=== PATIENT | male | born 1970 | race Caucasian/White ===

== ENCOUNTER 2016-10-24 00:42 | Emergency (ER) | payer MEDICAID ==
[2016-10-24] MEDS ORDERED: Acetaminophen/oxyCODONE 325-5 MG Tab PO ONE (02:43)
[2016-10-24] MEDS ORDERED: Ketorolac 30 MG/ML SDV IM ONE (02:43)
--- NOTE | 2016-10-24 02:45 | EDM.PDOC ---
ED HPI GENERAL MEDICAL PROBLEM - General Chief Complaint: General Stated Complaint: PAIN ALL OVER BODY Time Seen by Provider: 10/24/16 01:50 Source of Information: Reports: Patient History Limitations: Reports: No Limitations - History of Present Illness INITIAL COMMENTS - FREE TEXT/NARRATIVE: The patient is a 46-year-old male with a history of chronic back pain who comes in with an exacerbation of his usual pain. He states that he's had an increase in his pain level over the past 2 weeks. Has been seeing his doctor for this. He had an MRI completed at an outside institution 3 days ago but doesn't have this result yet. Comes in tonight because his pain is poorly controlled. He has been taking cyclobenzaprine and hydrocodone for pain. States the hydrocodone use to work but hasn't worked lately. However he has only taken 2 tablets in the last 24 hours. He hasn't taken any NSAIDs. States he has been taking the cyclobenzaprine at home and has adequate supply of all of his medications. No fever. No weakness. No numbness. No systemic symptoms or additional complaints. Generalized Pain Score (Numeric/FACES): 5 - Related Data Allergies Allergy/AdvReac Type Severity Reaction Status Date / Time No Known Allergies Allergy Verified 10/24/16 00:56 Home Meds: Home Meds DULoxetine [Cymbalta] 60 mg PO BID 12/27/15 [History] Nabumetone [Nabumetone] 500 mg PO BID 12/27/15 [History] Acetaminophen/HYDROcodone [[place] 325-5 MG] 1 tab PO Q6H PRN 10/24/16 [History] Budesonide/Formoterol [Symbicort 160-4.5 MCG] 1 inh INH ASDIRECTED 10/24/16 [ History] Cyclobenzaprine [Flexeril] 10 mg PO BEDTIME 10/24/16 [History] Losartan/Hydrochlorothiazide [Losartan-HCTZ 50-12.5 MG] 1 tab PO DAILY 10/24/16 [History] Past Medical History HEENT History: Reports: Impaired Vision Other HEENT History: wears eyeglasses Cardiovascular History: Reports: Hypertension Other Cardiovascular History: takes no BP med. Respiratory History: Reports: Asthma Other Respiratory History: takes no meds for asthma. Musculoskeletal History: Reports: Back Pain, Chronic, Neck Pain, Chronic, Other (See Below) Other Musculoskeletal History: chronic neck and back pain, radiating into bi- lat legs into toes, blown disk to back Neurological History: Reports: Migraines Social & Family History - Family History Family Medical History: Noncontributory Cardiac: Reports: [place] - Tobacco Use Smoking Status *Q: Never Smoker Second Hand Smoke Exposure: No - Caffeine Use Caffeine Use: Reports: Soda Other Caffeine Use: diet coke 2/day - Recreational Drug Use Recreational Drug Use: No - Living Situation & Occupation Living situation: Reports: Single Occupation: Employed ED ROS GENERAL - Review of Systems Review Of Systems: See Below Constitutional: Reports: No Symptoms Respiratory: Reports: No Symptoms Cardiovascular: Reports: No Symptoms GI/Abdominal: Reports: No Symptoms : Reports: No Symptoms Neurological: Reports: No Symptoms ED EXAM, GENERAL - Physical Exam Exam: See Below Exam Limited By: No Limitations General Appearance: Alert, WD/WN, No Apparent Distress Eye Exam: Bilateral Eye: Normal Inspection Ears: Normal External Exam Nose: Normal Inspection Throat/Mouth: Normal Inspection, Normal Voice, No Airway Compromise Head: Atraumatic, Normocephalic Neck: Normal Inspection, Supple, Non-Tender, Full Range of Motion Respiratory/Chest: No Respiratory Distress, Lungs Clear, Normal Breath Sounds Cardiovascular: Normal Peripheral Pulses, Regular Rate, Rhythm, No Murmur GI/Abdominal: Soft, Non-Tender, No Distention. No: Rebound Back Exam: Normal Inspection, Vertebral Tenderness (throughout T and L spine. No step-offs/deformities. Skin normal. No fluctuance. ). No: CVA Tenderness ( L), CVA Tenderness (R) Extremities: Normal Inspection Neurological: Alert, Oriented, No Motor/Sensory Deficits Psychiatric: Normal Affect, Normal Mood Skin Exam: Warm, Dry, Intact, Normal Color, No Rash Course - Vital Signs Last Recorded V/S: Last Vital Signs Temp 36.3 C 10/24/16 00:53 Pulse 77 10/24/16 03:14 Resp 18 10/24/16 03:14 BP 117/79 10/24/16 03:14 Pulse Ox 95 10/24/16 03:14 - Orders/Labs/Meds Meds: Medications Discontinued Medications Generic Name Dose Route Start Last Admin Trade Name Freq PRN Reason Stop Dose Admin Ketorolac Tromethamine 30 mg 10/24/16 02:43 10/24/16 02:57 Toradol IM 10/24/16 02:44 30 mg ONETIME ONE Administration Oxycodone/Acetaminophen 2 tab 10/24/16 02:43 10/24/16 02:56 Percocet 325-5 Mg PO 10/24/16 02:44 2 tab ONETIME ONE Administration Departure - Departure Time of Disposition: 02:43 Disposition: Home, Self-Care 01 Clinical Impression: Back pain Qualifiers: Back pain location: low back pain Chronicity: acute Back pain laterality: midline Sciatica presence: without sciatica Qualified Code(s): M54.5 - Low back pain - Discharge Information Instructions: Back Pain, Adult Referrals: Balta Bianchi MD [Primary Care Provider] - Forms: ED Department Discharge Additional Instructions: 1. OK to take your hydrocodone every 4-6 hours. You may have better pain control tomorrow if you take it more frequently than twice per day while your pain is severe. 2. Also take ibuprofen as prescribed. Ibuprofen works in a different way, and while it may not take away your pain, it should help some. 3. Also continue your cyclobenzaprine as needed for muscle spasm. 4. Follow up with Dr. Bianchi as soon as possible to discuss further pain control.
[2016-10-24 03:21] VITALS: BP 117/79
== END 2016-10-24 03:15 | disposition home or self-care (01) ==
LOC: JD.ED 00:42
DX: M54.5 Low back pain (principal); I10 Essential (primary) hypertension; J45.909 Unspecified asthma, uncomplicated
CPT/HCPCS: 96372; 99283; A9270; J1885

== ENCOUNTER 2017-09-01 04:18 | Emergency (ER) | payer MEDICAID ==
[2017-09-01 04:27] VITALS: BP 143/97
[2017-09-01] MEDS ORDERED: Ketorolac 30 MG/ML SDV IM ONE (04:44)
[2017-09-01] MEDS ORDERED: Acetaminophen/HYDROcodone 325-5 MG Tab PO ONE (04:49)
--- NOTE | 2017-09-01 04:51 | EDM.PDOC ---
ED HPI GENERAL MEDICAL PROBLEM - General Chief Complaint: General Stated Complaint: PAIN ALL OVER BODY Time Seen by Provider: 09/01/17 04:39 Source of Information: Reports: Patient, RN Notes Reviewed - History of Present Illness INITIAL COMMENTS - FREE TEXT/NARRATIVE: 47-year-old male comes in initially with complaint of aching all over but when questioned more specifically states that his low back giving him the most difficulty early this morning. No recent fall or injury. He states he has "a bulging disc". He is on chronic anti-inflammatory medication in addition to multiple other indications. See list for details. He does take at least occasional hydrocodone for breakthrough discomfort. He states he ran out about 2 days ago. Generalized Pain Score (Numeric/FACES): 8 - Related Data Allergies Allergy/AdvReac Type Severity Reaction Status Date / Time No Known Allergies Allergy Verified 09/01/17 04:24 Home Meds: Home Meds DULoxetine [Cymbalta] 60 mg PO DAILY 12/27/15 [History] Nabumetone 500 mg PO BID 12/27/15 [History] Acetaminophen/HYDROcodone [[place] 325-5 MG] 1 tab PO Q6H PRN 10/24/16 [History] Budesonide/Formoterol [Symbicort 160-4.5 MCG] 1 inh INH ASDIRECTED 10/24/16 [ History] Cyclobenzaprine [Flexeril] 10 mg PO BEDTIME 10/24/16 [History] Losartan/Hydrochlorothiazide [Losartan-HCTZ 50-12.5 MG] 1 tab PO DAILY 10/24/16 [History] Amitriptyline [Elavil] 50 mg PO BEDTIME 09/01/17 [History] Past Medical History HEENT History: Reports: Impaired Vision Other HEENT History: wears eyeglasses Cardiovascular History: Reports: Hypertension Other Cardiovascular History: takes no BP med. Respiratory History: Reports: Asthma Other Respiratory History: takes no meds for asthma. Musculoskeletal History: Reports: Back Pain, Chronic, Neck Pain, Chronic, Other (See Below) Other Musculoskeletal History: chronic neck and back pain, radiating into bi- lat legs into toes, blown disk to back Neurological History: Reports: Migraines Social & Family History - Family History Family Medical History: Noncontributory Cardiac: Reports: [place], [place] - Tobacco Use Smoking Status *Q: Never Smoker - Caffeine Use Caffeine Use: Reports: Soda Other Caffeine Use: diet coke 2/day - Recreational Drug Use Recreational Drug Use: No - Living Situation & Occupation Living situation: Reports: Single Occupation: Employed ED ROS GENERAL - Review of Systems Review Of Systems: See Below Constitutional: Denies: Fever, Chills HEENT: Reports: No Symptoms Respiratory: Denies: Shortness of Breath Cardiovascular: Denies: Chest Pain GI/Abdominal: Denies: Abdominal Pain, Nausea, Vomiting Musculoskeletal: Reports: Back Pain Skin: Denies: Rash Neurological: Denies: Numbness, Tingling, Difficulty Walking ED EXAM, GENERAL - Physical Exam Exam: See Below General Appearance: Alert, No Apparent Distress Head: Atraumatic Neck: Supple Respiratory/Chest: Lungs Clear Cardiovascular: Regular Rate, Rhythm GI/Abdominal: Non-Tender Back Exam: Paraspinal Tenderness (Mild). No: Vertebral Tenderness Extremities: Normal Inspection, Normal Range of Motion Neurological: Alert, Oriented, No Motor/Sensory Deficits Skin Exam: Warm, Dry, Normal Color Course - Vital Signs Text/Narrative:: . Patient is driving. We have given him one hydrocodone to take when he gets home. Discharge instructions as documented Last Recorded V/S: Last Vital Signs Temp 97.9 F 09/01/17 04:25 Pulse 87 09/01/17 04:25 Resp 16 09/01/17 04:25 BP 143/97 H 09/01/17 04:25 Pulse Ox 96 09/01/17 04:25 - Orders/Labs/Meds Meds: Medications Discontinued Medications Generic Name Dose Route Start Last Admin Trade Name Harshad PRN Reason Stop Dose Admin Hydrocodone Bitart/Acetaminophen 1 tab 09/01/17 04:49 [place] 325-5 Mg PO 09/01/17 04:50 ONETIME ONE Ketorolac Tromethamine 30 mg 09/01/17 04:44 Toradol IM 09/01/17 04:45 ONETIME ONE Departure - Departure Time of Disposition: 04:50 Disposition: Home, Self-Care 01 Condition: Fair Clinical Impression: Low back pain Qualifiers: Chronicity: chronic Back pain laterality: midline Sciatica presence: without sciatica Qualified Code(s): M54.5 - Low back pain - Discharge Information Instructions: Back Pain, Adult Referrals: Balta Bianchi MD [Primary Care Provider] - Forms: ED Department Discharge Additional Instructions: You have been given one hydrocodone tablet which she may take when you get home , do not drive when taking hydrocodone. Continue other current medications as prescribed. Follow-up with Dr. Bianchi as needed
== END 2017-09-01 04:58 | disposition home or self-care (01) ==
LOC: JD.ED 04:18
DX: M54.5 Low back pain (principal); I10 Essential (primary) hypertension; Z79.899 Other long term (current) drug therapy
CPT/HCPCS: 99283; A9270

== ENCOUNTER 2018-05-12 23:26 | Emergency (ER) | payer MEDICAID ==
[2018-05-12 23:34] VITALS: BP 137/88
[2018-05-13] MEDS ORDERED: Ketorolac 60 MG/2 ML SDV IM ONE (00:21)
--- NOTE | 2018-05-13 00:27 | EDM.PDOC ---
ED HPI GENERAL MEDICAL PROBLEM - General Chief Complaint: General Stated Complaint: ALL OVER BODY PAIN Time Seen by Provider: 05/12/18 23:47 Source of Information: Reports: Patient, Family History Limitations: Reports: No Limitations - History of Present Illness INITIAL COMMENTS - FREE TEXT/NARRATIVE: This is a 47-year-old male. He apparently has a blown disc in his back lumbar spine. He takes hydrocodone and a Flexeril for his pain. Apparently today he's been doing fine and nothing unusual then he had onset of low back pain around 8 or 9 PM that seemed to spread and now his entire body is hurting. He also states he has a history of fibromyalgia. He did take 2 hydrocodone but he did not take a muscle relaxer at 9 PM this evening. It hasn't seemed to help slowly comes to the ER for evaluation. He denies a runny nose he denies any cold symptoms no cough no fever no chills he's had no diarrhea and no nausea and vomiting. He's had no abdominal pain and no pain down his legs other than generalized hurting. He denies any other acute symptoms. He does not appear to be in acute distress. Generalized Pain Score (Numeric/FACES): 8 - Related Data Allergies Allergy/AdvReac Type Severity Reaction Status Date / Time No Known Allergies Allergy Verified 02/07/18 01:39 Home Meds: Home Meds DULoxetine [Cymbalta] 60 mg PO DAILY 12/27/15 [History] Nabumetone 500 mg PO BID 12/27/15 [History] Acetaminophen/HYDROcodone [[place] 325-5 MG] 1 tab PO Q6H PRN 10/24/16 [History] Budesonide/Formoterol [Symbicort 160-4.5 MCG] 2 puff INH BID 10/24/16 [History] Cyclobenzaprine [Flexeril] 10 mg PO DAILY 10/24/16 [History] Losartan/Hydrochlorothiazide [Losartan-HCTZ 50-12.5 MG] 1 tab PO DAILY 10/24/16 [History] Amitriptyline [Elavil] 50 mg PO DAILY 09/01/17 [History] Cholecalciferol (Vitamin D3) [Vitamin D3] 0 unit PO DAILY 05/12/18 [History] Cyanocobalamin (Vitamin B12) [Vitamin B12] 500 mcg PO DAILY 05/12/18 [History] Famotidine [Pepcid] 20 mg PO DAILY 05/12/18 [History] Past Medical History HEENT History: Reports: Impaired Vision Other HEENT History: wears eyeglasses Cardiovascular History: Reports: Hypertension Other Cardiovascular History: takes no BP med. Respiratory History: Reports: Asthma Other Respiratory History: takes no meds for asthma. Musculoskeletal History: Reports: Back Pain, Chronic, Neck Pain, Chronic, Other (See Below) Other Musculoskeletal History: chronic neck and back pain, radiating into bi- lat legs into toes, blown disk to back Neurological History: Reports: Migraines Psychiatric History: Reports: Anxiety, Depression Social & Family History - Family History Family Medical History: Noncontributory Cardiac: Reports: [place], [place] - Tobacco Use Smoking Status *Q: Never Smoker - Caffeine Use Caffeine Use: Reports: Soda Other Caffeine Use: diet coke 2/day - Recreational Drug Use Recreational Drug Use: No - Living Situation & Occupation Living situation: Reports: Single Occupation: Employed ED ROS GENERAL - Review of Systems Review Of Systems: See Below Constitutional: Denies: Fever, Chills HEENT: Reports: No Symptoms Respiratory: Denies: Shortness of Breath, Cough Cardiovascular: Denies: Chest Pain Endocrine: Reports: No Symptoms GI/Abdominal: Denies: Abdominal Pain, Diarrhea, Nausea, Vomiting : Reports: No Symptoms Musculoskeletal: Reports: Back Pain, Other (Fibromyalgia) Skin: Reports: No Symptoms Neurological: Denies: Trouble Speaking, Difficulty Walking Psychiatric: Reports: No Symptoms Hematologic/Lymphatic: Reports: No Symptoms ED EXAM, GENERAL - Physical Exam Exam: See Below Exam Limited By: No Limitations General Appearance: Alert, WD/WN, No Apparent Distress Eye Exam: Bilateral Eye: Normal Inspection Ears: Normal External Exam Nose: Normal Inspection. No: Nasal Drainage, Clear Rhinorrhea Throat/Mouth: Normal Inspection, Normal Lips, Normal Oropharynx, Normal Voice, No Airway Compromise Head: Normocephalic Neck: Supple Respiratory/Chest: No Respiratory Distress, Lungs Clear, Normal Breath Sounds Cardiovascular: Regular Rate, Rhythm, No Murmur GI/Abdominal: Soft, Non-Tender Back Exam: Other (The patient is able to sit up in bed with no difficulty, when I palpate his back he has generalized soreness everywhere, he does have specific soreness however in the upper lumbar area in the paraspinal muscles on palpation that he states that is where his blown disc is, there is no SI joint tenderness.) Extremities: Normal Inspection, Normal Range of Motion Neurological: Alert, Oriented Psychiatric: Normal Affect, Normal Mood Skin Exam: Warm, Dry Course - Vital Signs Last Recorded V/S: Last Vital Signs Temp 97.3 F 05/12/18 23:33 Pulse 98 05/12/18 23:33 Resp 20 05/12/18 23:33 BP 137/88 05/12/18 23:33 Pulse Ox 96 05/12/18 23:33 - Orders/Labs/Meds Orders: Active Orders 24 hr Category Date Time Status Ketorolac [Toradol] Med 05/13/18 00:21 Once 60 mg IM ONETIME ONE Departure - Departure Time of Disposition: 00:25 Disposition: Home, Self-Care 01 Condition: Fair Clinical Impression: Myalgia, Fibromyalgia Chronic low back pain Qualifiers: Back pain laterality: midline Sciatica presence: without sciatica Qualified Code(s): M54.5 - Low back pain; G89.29 - Other chronic pain - Discharge Information *PRESCRIPTION DRUG MONITORING PROGRAM REVIEWED*: Not Applicable *COPY OF PRESCRIPTION DRUG MONITORING REPORT IN PATIENT VERONICA: Not Applicable Referrals: Balta Bianchi MD [Primary Care Provider] - Additional Instructions: Continue with the hydrocodone as needed, as soon as you get home take a muscle relaxer to help you relax and ease up some of the tension in the muscles as well it will help you sleep, drink lots of water because it helps with muscle soreness, follow-up with your family doctor this week for recheck, return to the ER for emergencies - My Orders Last 24 Hours: My Active Orders 05/13/18 00:21 Ketorolac [Toradol] 60 mg IM ONETIME ONE - Assessment/Plan Last 24 Hours: My Active Orders 05/13/18 00:21 Ketorolac [Toradol] 60 mg IM ONETIME ONE
== END 2018-05-13 00:29 | disposition home or self-care (01) ==
LOC: JD.ED 23:26
DX: M54.5 Low back pain (principal); G89.29 Other chronic pain; M79.7 Fibromyalgia; I10 Essential (primary) hypertension; Z79.899 Other long term (current) drug therapy
CPT/HCPCS: 96372; 99283; J1885

== ENCOUNTER 2018-07-10 03:26 | Emergency (ER) | payer MEDICAID ==
[2018-07-10 03:36] VITALS: BP 137/95
[2018-07-10] MEDS ORDERED: Ketorolac 60 MG/2 ML SDV IM ONE (04:11)
--- NOTE | 2018-07-10 04:14 | EDM.PDOC ---
ED HPI GENERAL MEDICAL PROBLEM - General Chief Complaint: Back Pain or Injury Stated Complaint: BACK AND LEG PAIN BETWEEN A 9 AND 10 Time Seen by Provider: 07/10/18 03:53 Source of Information: Reports: Patient History Limitations: Reports: No Limitations - History of Present Illness Onset: Today Back Pain Score (Numeric/FACES): 9 - Related Data Allergies Allergy/AdvReac Type Severity Reaction Status Date / Time No Known Allergies Allergy Verified 02/07/18 01:39 Home Meds: Home Meds DULoxetine [Cymbalta] 60 mg PO DAILY 12/27/15 [History] Nabumetone 500 mg PO BID 12/27/15 [History] Acetaminophen/HYDROcodone [[place] 325-5 MG] 1 tab PO Q6H PRN 10/24/16 [History] Budesonide/Formoterol [Symbicort 160-4.5 MCG] 2 puff INH BID 10/24/16 [History] Cyclobenzaprine [Flexeril] 10 mg PO DAILY 10/24/16 [History] Losartan/Hydrochlorothiazide [Losartan-HCTZ 50-12.5 MG] 1 tab PO DAILY 10/24/16 [History] Amitriptyline [Elavil] 50 mg PO DAILY 09/01/17 [History] Cholecalciferol (Vitamin D3) [Vitamin D3] 0 unit PO DAILY 05/12/18 [History] Cyanocobalamin (Vitamin B12) [Vitamin B12] 500 mcg PO DAILY 05/12/18 [History] Famotidine [Pepcid] 20 mg PO DAILY 05/12/18 [History] Past Medical History HEENT History: Reports: Impaired Vision Other HEENT History: wears eyeglasses Cardiovascular History: Reports: Hypertension Other Cardiovascular History: takes no BP med. Respiratory History: Reports: Asthma, Sleep Apnea Other Respiratory History: takes no meds for asthma., wears CPAP at [facility] Musculoskeletal History: Reports: Back Pain, Chronic, Neck Pain, Chronic, Other (See Below) Other Musculoskeletal History: chronic neck and back pain, radiating into bi- lat legs into toes, blown disk to back Neurological History: Reports: Migraines Psychiatric History: Reports: Anxiety, Depression Social & Family History - Family History Family Medical History: Noncontributory Cardiac: Reports: [place], [place] - Tobacco Use Smoking Status *Q: Never Smoker Second Hand Smoke Exposure: No - Caffeine Use Caffeine Use: Reports: None Other Caffeine Use: diet coke 2/day - Recreational Drug Use Recreational Drug Use: No - Living Situation & Occupation Living situation: Reports: Single Occupation: Employed ED ROS GENERAL - Review of Systems Review Of Systems: ROS reveals no pertinent complaints other than HPI. ED EXAM,LOWER BACK PAIN/INJURY - Physical Exam Exam: See Below Text/Narrative:: dictated Course - Vital Signs Last Recorded V/S: Last Vital Signs Temp 36.4 C 07/10/18 03:32 Pulse 86 07/10/18 03:32 Resp 20 07/10/18 03:32 BP 137/95 H 07/10/18 03:32 Pulse Ox 93 L 07/10/18 03:32 - Orders/Labs/Meds Meds: Medications Discontinued Medications Generic Name Dose Route Start Last Admin Trade Name Harshad PRN Reason Stop Dose Admin Ketorolac Tromethamine 60 mg 07/10/18 04:11 07/10/18 04:17 Toradol IM 07/10/18 04:12 60 mg ONETIME ONE Administration Departure - Departure Time of Disposition: 04:13 Disposition: Home, Self-Care 01 Condition: Fair Clinical Impression: Low back pain due to displacement of intervertebral disc - Discharge Information Instructions: Herniated Disk, [id number] Referrals: Balta Bianchi MD [Primary Care Provider] - Forms: ED Department Discharge Additional Instructions: Please return if you are worse. Follow up with PCP as needed.
--- NOTE | 2018-07-10 05:20 | ER ---
REASON FOR EMERGENCY ROOM VISIT: Acute exacerbation of chronic low back pain due to herniated disk. HISTORY OF PRESENT ILLNESS: This unfortunate 48-year-old gentleman has been plagued for 15 years with chronic low back pain which he states is a result of a herniated disk for which he has not had any surgery. His pain management has varied over the years, but recently has consisted largely of hydrocodone on a chronic basis along with Flexeril. He has nonetheless had periods where pain has been severe and he has had to come to the emergency room at which time, he has responded in the past to IM Toradol injections. Today, he states that he has had his usual amount of low- grade pain that he rates from 0-3 on a scale of 1-10. Tonight, his pain intensified to approximately 8/10. He took his hydrocodone last 4-1/2 hours ago and this was to no avail. He does take Flexeril, but he does not think it helps at all. As far as his usual hydrocodone, he has been on this medication for quite some time. He states that there are times when he goes a couple of weeks without needing it and then when he has flare-ups of pain like this, he requires it sometimes 2 or 3 times a day or even more. The patient's back pain was not related to any particular trauma. He states he was evaluated by a back surgeon back in 2003, who told him that "he would not touch me." The reason for this is was unclear to me. He is followed by Dr. Bianchi at [place], who is his primary care provider and has been prescribing his hydrocodone when needed. He does have chronic leg weakness, more so on the left than on the right which has been attributed to his pain. He has had physical therapy in the past. However, he was told it was not doing him any good. Heat or cold has not helped his pain. Usually, the pain is most bothersome, it localized in the lower back area, but it does radiate down his right leg at times. [place] is 1 such example where he has some achiness in his right leg. He has not had any problems with numbness or continence issues. PAST MEDICAL HISTORY: Significant for: 1. Hypertension. 2. Chronic back pains as outlined above. 3. History of asthma. 4. Migraines. 5. History of anxiety and depression. 6. He has been told he has fibromyalgia in the past, but apparently that impression has been changed, he states his provider no longer feels he has this. CURRENT MEDICATIONS: Include: 1. Cymbalta 60 mg per day. 2. Nabumetone 500 mg p.o. b.i.d. 3. Hydrocodone 5/325 one q.4 hours p.r.n. pain. 4. Flexeril. 5. Losartan/hydrochlorothiazide 50/12.5 mg p.o. daily. 6. Elavil 50 mg p.o. daily. 7. Vitamins. 8. Pepcid 20 mg p.o. daily. FAMILY HISTORY: Noncontributory except his father did have coronary artery disease. SOCIAL HISTORY: He is single and lives alone. He is close to his sister and some other friends. He denies any recreational drug use or alcohol use. He is a nonsmoker. REVIEW OF SYSTEMS: All pertinent positives and negatives as listed in the HPI. PHYSICAL EXAMINATION: GENERAL: Reveals a pleasant man who does not appear to be in any acute distress. VITAL SIGNS: He is afebrile. Heart rate is 86, blood pressure 137/95, and O2 saturations 93% on room air. HEENT: Unremarkable. NECK: Supple and nontender to passive range of motion. CHEST: Clear to auscultation. CARDIAC: Regular rate without murmur. ABDOMEN: Obese, but soft and nontender. No palpable masses. No pulsatile masses were noted. EXTREMITIES: Normal pulses. No edema. SPINE: He does have some tenderness to palpation and percussion over approximately L3-L4. There is no paraspinal spasm. The tenderness is in the midline. It is fairly significant. Straight leg raising is negative. Deep tendon reflexes are symmetrical in both lower extremities. Muscle strength, bulk and tone is symmetrical bilaterally in both lower extremities. FINAL DIAGNOSIS: Acute exacerbation of chronic low back pain due to possible herniated lumbar disk. DISPOSITION: I reviewed with him what has been done for his back pain and I am left with somewhat perplexed as to why as to the actual severity of his lumbar disk problem and why this has been approached surgically. I suspect there is more to the story than I am aware of. We reviewed things like stretching exercises, activity, physical therapy, application of cold and heat, etc. He has been through all of these and is well-versed in this. He was given Toradol 60 mg IM x1 and urged to follow up with Dr. Bianchi, and he agrees with this plan. All questions were answered. GALE /[id number]
== END 2018-07-10 04:21 | disposition home or self-care (01) ==
LOC: JD.ED 03:26
DX: M51.26 Other intervertebral disc displacement, lumbar region (principal); F41.9 Anxiety disorder, unspecified; F32.9 Major depressive disorder, single episode, unspecified; I10 Essential (primary) hypertension; Z79.899 Other long term (current) drug therapy
CPT/HCPCS: 96372; 99283; J1885

== ENCOUNTER 2018-07-21 05:02 | Emergency (ER) | payer MEDICAID ==
[2018-07-21] MEDS ORDERED: Acetaminophen 325 MG Tab PO ONE (05:52)
[2018-07-21] MEDS ORDERED: Ondansetron 4 MG Tab.DIS PO ONE (05:52)
--- NOTE | 2018-07-21 05:55 | EDM.PDOC ---
ED HPI GENERAL MEDICAL PROBLEM - General Chief Complaint: Gastrointestinal Problem Stated Complaint: VOMITING Time Seen by Provider: 07/21/18 05:37 Source of Information: Reports: Patient, RN Notes Reviewed History Limitations: Reports: No Limitations - History of Present Illness INITIAL COMMENTS - FREE TEXT/NARRATIVE: The patient states that he had nausea with approximately 10 episodes of emesis yesterday. No diarrhea. He reports that both his sister and mother have similarly been vomiting. He states that he felt warm, but he has not had a fever , yesterday and today. Today, the patient states that he feels weak, he has had nausea but no emesis, headache, his bones are sore, and his abdomen is uncomfortable. He has not taken any [id number] or home remedies to treat his symptoms. The patient's PCP is Dr. Bianchi. His pain records management manager is in [place]. Abdomen Pain Score (Numeric/FACES): 3 - Related Data Allergies Allergy/AdvReac Type Severity Reaction Status Date / Time No Known Allergies Allergy Verified 07/21/18 05:10 Home Meds: Home Meds DULoxetine [Cymbalta] 60 mg PO DAILY 12/27/15 [History] Nabumetone 500 mg PO BID 12/27/15 [History] Acetaminophen/HYDROcodone [[place] 325-5 MG] 1 tab PO Q6H PRN 10/24/16 [History] Budesonide/Formoterol [Symbicort 160-4.5 MCG] 2 puff INH BID 10/24/16 [History] Cyclobenzaprine [Flexeril] 10 mg PO DAILY 10/24/16 [History] Losartan/Hydrochlorothiazide [Losartan-HCTZ 50-12.5 MG] 1 tab PO DAILY 10/24/16 [History] Amitriptyline [Elavil] 50 mg PO DAILY 09/01/17 [History] Cholecalciferol (Vitamin D3) [Vitamin D3] 0 unit PO DAILY 05/12/18 [History] Cyanocobalamin (Vitamin B12) [Vitamin B12] 500 mcg PO DAILY 05/12/18 [History] Famotidine [Pepcid] 20 mg PO DAILY 05/12/18 [History] Ondansetron [Zofran ODT] 1 tab PO Q8H PRN #10 tab.dis 04/19/19 [Rx] Past Medical History HEENT History: Reports: Impaired Vision Other HEENT History: wears eyeglasses Cardiovascular History: Reports: Hypertension Respiratory History: Reports: Asthma (suspected, not tested), Sleep Apnea ( wears nightly CPAP) Gastrointestinal History: Reports: GERD Musculoskeletal History: Reports: Back Pain, Chronic, Neck Pain, Chronic Psychiatric History: Reports: Anxiety, Depression - Past Surgical History HEENT Surgical History: Reports: Oral Surgery (dental extractions) Social & Family History - Family History Family Medical History: Noncontributory Cardiac: Reports: [place] - Tobacco Use Smoking Status *Q: Never Smoker - Caffeine Use Caffeine Use: Reports: None Other Caffeine Use: diet coke 2/day - Alcohol Use Alcohol Use History: No - Recreational Drug Use Recreational Drug Use: No - Living Situation & Occupation Living situation: Reports: Single, with Family (Sister) Occupation: Unemployed ED ROS GENERAL - Review of Systems Review Of Systems: ROS reveals no pertinent complaints other than HPI. ED EXAM, GI/ABD - Physical Exam Exam: See Below Exam Limited By: No Limitations General Appearance: Alert, WD/WN, No Apparent Distress Eyes: Bilateral: Normal Appearance, EOMI Ears: Normal External Exam, Hearing Grossly Normal Nose: Normal Inspection Throat/Mouth: Normal Inspection, Normal Lips, Normal Voice, No Airway Compromise Head: Atraumatic, Normocephalic Neck: Normal Inspection, Full Range of Motion Respiratory/Chest: No Respiratory Distress, Lungs Clear, Normal Breath Sounds, No Accessory Muscle Use Cardiovascular: Normal Peripheral Pulses, Regular Rate, Rhythm, No Gallop, No JVD, No Murmur, No Rub GI/Abdominal Exam: Normal Bowel Sounds, Soft, Non-Tender, No Organomegaly, No Distention, No Abnormal Bruit, No Mass, Pelvis Stable, Other (Obese) (Male) Exam: Deferred Rectal (Males) Exam: Deferred Back Exam: Normal Inspection, Full Range of Motion, NT Extremities: Normal Inspection, Normal Range of Motion, Normal Capillary Refill Neurological: Alert, Oriented, Normal Cognition, No Motor/Sensory Deficits Psychiatric: Normal Affect Skin Exam: Warm, Dry, Intact, Normal Color, No Rash Course - Vital Signs Last Recorded V/S: Last Vital Signs Temp 35.9 C 07/21/18 07:10 Pulse 106 H 07/21/18 07:10 Resp 16 07/21/18 07:10 BP 119/96 H 07/21/18 07:10 Pulse Ox 95 07/21/18 07:10 - Orders/Labs/Meds Meds: Medications Discontinued Medications Generic Name Dose Route Start Last Admin Trade Name Harshad PRN Reason Stop Dose Admin Acetaminophen 650 mg 07/21/18 05:52 07/21/18 06:00 Tylenol PO 07/21/18 05:53 650 mg NOW ONE Administration Ondansetron HCl 4 mg 07/21/18 05:52 07/21/18 06:00 Zofran Odt PO 07/21/18 05:53 4 mg ONETIME ONE Administration - Re-Assessments/Exams Free Text/Narrative Re-Assessment/Exam: 07/21/18 05:54 While the patient is complaining of some abdominal discomfort, on examination, his abdomen is soft, nontender, with normoactive bowel sounds. I don't see the need for blood work. I will treat the patient's nausea was Zofran ODT, his headache with Tylenol, and have him drink some fluids. 07/21/18 06:48 The patient states that he is feeling much better. I will discharge him home with a prescription for Zofran ODT. Departure - Departure Time of Disposition: 06:48 Disposition: Home, Self-Care 01 Condition: Good Clinical Impression: Nausea and vomiting - Discharge Information *PRESCRIPTION DRUG MONITORING PROGRAM REVIEWED*: Not Applicable *COPY OF PRESCRIPTION DRUG MONITORING REPORT IN PATIENT VERONICA: Not Applicable Prescriptions: Ondansetron [Zofran ODT] 1 tab PO Q8H PRN #10 tab.dis PRN Reason: Nausea/Vomiting Instructions: Nausea and Vomiting, Adult Referrals: Balta Bianchi MD [Primary Care Provider] - Forms: ED Department Discharge Additional Instructions: You were seen in the emergency room for recent nausea and vomiting, headache, abdominal discomfort, and generalized aches and pains. You were given and antinausea medicine, Tylenol, and fluids in the ER, with improvement in your symptoms. A prescription for the anti-nausea medicine Zofran has been sent to the [facility], located in the [employer] [facility]. Dissolve one tablet of Zofran on your tongue up to every 8 hours, as needed for nausea/vomiting. Stay adequately hydrated. Follow-up with your PCP, Dr. Bianchi, as needed. If any other problems, please do not hesitate to return to the ER.
[2018-07-21 07:20] VITALS: BP 119/96
== END 2018-07-21 07:10 | disposition home or self-care (01) ==
LOC: JD.ED 05:02
DX: R11.2 Nausea with vomiting, unspecified (principal); I10 Essential (primary) hypertension; F41.9 Anxiety disorder, unspecified; F32.9 Major depressive disorder, single episode, unspecified; K21.9 Gastro-esophageal reflux disease without esophagitis; Z79.899 Other long term (current) drug therapy
CPT/HCPCS: 99283; A9270

== ENCOUNTER 2019-03-05 00:07 | Emergency (ER) | payer MEDICAID ==
[2019-03-05 00:16] VITALS: BP 131/72; PULSE 93
[2019-03-05] MEDS ORDERED: Ketorolac 60 MG/2 ML SDV IM ONE (00:32)
[2019-03-05] MEDS ORDERED: Orphenadrine 100 MG Tab.ER PO STA (00:32)
--- NOTE | 2019-03-05 00:38 | EDM.PDOC ---
ED HPI GENERAL MEDICAL PROBLEM - General Chief Complaint: Back Pain or Injury Stated Complaint: neck pain Time Seen by Provider: 03/05/19 00:18 Source of Information: Reports: Patient History Limitations: Reports: No Limitations - History of Present Illness INITIAL COMMENTS - FREE TEXT/NARRATIVE: Mr. Lund is a pleasant 48-year-old man with a past medical history significant for chronic neck and back pain. He states that his pain is due to a "blown disc" but he does not recall where the disc is, and he cannot explain how a single disc herniation could cause pain all over his body. He was previously treated by pain management in [place], but for reasons unclear, that relationship ended in January or February of this year. Since then, the patient has been prescribed [place] 5/325 per his PCP. The patient now presents to the ED stating that he developed pain all over his body around 16:30 to 17:00 yesterday afternoon, 03/04/2019. He states that the pain waxed and waned, but became constant around midnight. He states that he took a [place] tonight, but it did not improve his pain. He therefore came to the ED, and is requesting that I give him something to treat his pain. The patient denies suffering any injury or known precipitant of his current pain. He denies recent illness, such as fever, chills, cough, dyspnea, chest pain, palpitations, nausea, vomiting, constipation, diarrhea, abdominal pain, urinary symptoms, recent weight gain or weight loss, recent bloody bowel movements or black bowel movements, recent joint aches, headaches, or rashes. The patient's PCP is Dr. Balta Bianchi. His Classifier Tender is in [place], but patient does not recall his name. back Pain Score (Numeric/FACES): 7 - Related Data Allergies Allergy/AdvReac Type Severity Reaction Status Date / Time No Known Allergies Allergy Verified 03/05/19 00:16 Home Meds: Home Meds DULoxetine [Cymbalta] 60 mg PO DAILY 12/27/15 [History] Nabumetone 500 mg PO BID 12/27/15 [History] Acetaminophen/HYDROcodone [[place] 325-5 MG] 1 tab PO Q6H PRN 10/24/16 [History] Budesonide/Formoterol [Symbicort 160-4.5 MCG] 2 puff INH BID 10/24/16 [History] Cyclobenzaprine [Flexeril] 10 mg PO DAILY 10/24/16 [History] Losartan/Hydrochlorothiazide [Losartan-HCTZ 50-12.5 MG] 1 tab PO DAILY 10/24/16 [History] Amitriptyline [Elavil] 50 mg PO DAILY 09/01/17 [History] Cyanocobalamin (Vitamin B12) [Vitamin B12] 500 mcg PO DAILY 05/12/18 [History] Albuterol Sulfate [Albuterol Sulfate Hfa] 2 puff INH Q6HR PRN 03/05/19 [History] Orphenadrine [Norflex] 1 tab PO Q12H PRN #14 tab.er 03/05/19 [Rx] Past Medical History HEENT History: Reports: Impaired Vision Other HEENT History: wears eyeglasses Cardiovascular History: Reports: Hypertension Respiratory History: Reports: Asthma (suspected, not tested), Sleep Apnea ( nightly CPAP) Gastrointestinal History: Reports: GERD Musculoskeletal History: Reports: Back Pain, Chronic, Neck Pain, Chronic Psychiatric History: Reports: Anxiety, Depression Endocrine/Metabolic History: Reports: Obesity/BMI 30+ - Past Surgical History HEENT Surgical History: Reports: Oral Surgery (dental extractions) Social & Family History - Family History Family Medical History: Noncontributory Cardiac: Reports: [place], [place] - Tobacco Use Smoking Status *Q: Never Smoker Second Hand Smoke Exposure: No - Caffeine Use Caffeine Use: Reports: None Other Caffeine Use: diet coke 2/day - Alcohol Use Alcohol Use History: No - Recreational Drug Use Recreational Drug Use: No - Living Situation & Occupation Living situation: Reports: Single, with Family (Sister) Occupation: Unemployed ED ROS GENERAL - Review of Systems Review Of Systems: Comprehensive ROS is negative, except as noted in HPI. ED EXAM, GENERAL - Physical Exam Exam: See Below Exam Limited By: No Limitations General Appearance: Alert, WD/WN, No Apparent Distress Eye Exam: Bilateral Eye: EOMI, Normal Inspection Ears: Normal External Exam, Hearing Grossly Normal Nose: Normal Inspection Throat/Mouth: Normal Inspection, Normal Lips, Normal Voice, No Airway Compromise Head: Atraumatic, Normocephalic Neck: Normal Inspection, Full Range of Motion Respiratory/Chest: No Respiratory Distress, Lungs Clear, Normal Breath Sounds, No Accessory Muscle Use Cardiovascular: Normal Peripheral Pulses, Regular Rate, Rhythm, No Gallop, No JVD, No Murmur, No Rub Peripheral Pulses: 4+: Radial (L), Radial (R) GI/Abdominal: Normal Bowel Sounds, Soft, Non-Tender, No Organomegaly, No Distention, No Abnormal Bruit, No Mass (Male) Exam: Deferred Rectal (Males) Exam: Deferred Back Exam: Normal Inspection, Full Range of Motion, NT Extremities: Normal Inspection, Normal Range of Motion, No Pedal Edema, Normal Capillary Refill Neurological: Alert, Oriented, Normal Cognition, No Motor/Sensory Deficits Psychiatric: Normal Affect Skin Exam: Warm, Dry, Intact, Normal Color, No Rash Course - Vital Signs Last Recorded V/S: Last Vital Signs Temp 36.9 C 03/05/19 00:13 Pulse 93 03/05/19 00:13 Resp 18 03/05/19 00:13 BP 131/72 03/05/19 00:13 Pulse Ox 95 03/05/19 00:13 - Orders/Labs/Meds Orders: Active Orders 24 hr Category Date Time Status Ketorolac [Toradol] Med 03/05/19 00:32 Once 60 mg IM ONETIME ONE Orphenadrine [Norflex] Med 03/05/19 00:32 Stat 100 mg PO ONETIME STA - Re-Assessments/Exams Free Text/Narrative Re-Assessment/Exam: 03/05/19 00:33 By the patient's own account, he has chronic generalized body aches, with an exacerbation or flare tonight, without apparent injury or illness. The patient is already prescribed [place] per his PCP. He is requesting that I treat his pain tonight. I do not feel comfortable treating the patient with an opioid because: Opioids for chronic pain need to be prescribed by a single prescriber, in this case, his PCP. He appears to be in no distress whatsoever, and his vital signs are normal. He drove himself here. For tonight's purposes, the patient will receive a single injection of IM Toradol, and I will start him on oral Norflex, which I feel is a better muscle relaxant than Flexeril. I will prescribe a 7-day course of Norflex, and recommend that he stop taking Flexeril. The patient will contact the office of his PCP in the morning. Departure - Departure Time of Disposition: 00:34 Disposition: Home, Self-Care 01 Condition: Good Clinical Impression: Generalized pain - Discharge Information *PRESCRIPTION DRUG MONITORING PROGRAM REVIEWED*: Not Applicable *COPY OF PRESCRIPTION DRUG MONITORING REPORT IN PATIENT VERONICA: Not Applicable Referrals: Balta Bianchi MD [Primary Care Provider] - Additional Instructions: You were seen in the emergency room for generalized pain all over your body. You were treated with a single injection of IM Toradol, and started on the muscle relaxant Norflex. A prescription for Norflex has been sent to the [facility], located in the [employer]. Take one tablet of Norflex every 12 hours, starting this evening, 03/05/2019, as prescribed. Is very important that if you take Norflex, that you NOT TAKE Flexeril ( cyclobenzaprine) as well. Follow-up with your PCP, Dr. Balta Bianchi, at the next available appointment. If any other problems, please do not hesitate to return to the ER. - My Orders Last 24 Hours: My Active Orders 03/05/19 00:32 Ketorolac [Toradol] 60 mg IM ONETIME ONE Orphenadrine [Norflex] 100 mg PO ONETIME STA - Assessment/Plan Last 24 Hours: My Active Orders 03/05/19 00:32 Ketorolac [Toradol] 60 mg IM ONETIME ONE Orphenadrine [Norflex] 100 mg PO ONETIME STA
== END 2019-03-05 00:43 | disposition home or self-care (01) ==
LOC: JD.ED 00:07
DX: R52 Pain, unspecified (principal); I10 Essential (primary) hypertension; G47.30 Sleep apnea, unspecified; F41.9 Anxiety disorder, unspecified; F32.9 Major depressive disorder, single episode, unspecified; E66.9 Obesity, unspecified; Z68.41 Body mass index [BMI] 40.0-44.9, adult; Z79.899 Other long term (current) drug therapy; Z79.1 Long term (current) use of non-steroidal anti-inflammatories (NSAID)
CPT/HCPCS: 96372; 99283; A9270; J1885

== ENCOUNTER 2019-03-26 12:17 | Emergency (ER) | payer MEDICAID ==
[2019-03-26 12:29] VITALS: BP 144/96; PULSE 107
--- NOTE | 2019-03-26 14:58 | EDM.PDOC ---
ED HPI GENERAL MEDICAL PROBLEM - General Chief Complaint: Syncope Stated Complaint: BOUTS OF DIZZINESS AND FALLING Time Seen by Provider: 03/26/19 12:58 Source of Information: Reports: Patient History Limitations: Reports: No Limitations - History of Present Illness INITIAL COMMENTS - FREE TEXT/NARRATIVE: The patient presents with syncope. He said on Tuesday it happened with an abrasion to his forehead and nose. He has been taking norflex 2 times per day. He has a bad back. He has no headache now. He has no neck pain, chest pain or shortness of breath. He has no numbness or weakness. He has been lightheaded before Tuesday. Onset: Sudden Duration: Day(s): Location: Reports: Face Quality: Reports: Sharp Severity: Mild Improves with: Reports: None Worsens with: Reports: None Associated Symptoms: Reports: No Other Symptoms - Related Data Allergies Allergy/AdvReac Type Severity Reaction Status Date / Time No Known Allergies Allergy Verified 03/26/19 12:29 Home Meds: Home Meds DULoxetine [Cymbalta] 60 mg PO DAILY 12/27/15 [History] Nabumetone 500 mg PO BID 12/27/15 [History] Acetaminophen/HYDROcodone [[place] 325-5 MG] 1 tab PO Q6H PRN 10/24/16 [History] Budesonide/Formoterol [Symbicort 160-4.5 MCG] 2 puff INH BID 10/24/16 [History] Losartan/Hydrochlorothiazide [Losartan-HCTZ 50-12.5 MG] 1 tab PO DAILY 10/24/16 [History] Amitriptyline [Elavil] 50 mg PO DAILY 09/01/17 [History] Cyanocobalamin (Vitamin B12) [Vitamin B12] 500 mcg PO DAILY 05/12/18 [History] Albuterol Sulfate [Albuterol Sulfate Hfa] 2 puff INH Q6HR PRN 03/05/19 [History] Orphenadrine [Norflex] 1 tab PO Q12H PRN #14 tab.er 03/05/19 [Rx] Past Medical History HEENT History: Reports: Impaired Vision Other HEENT History: wears eyeglasses Cardiovascular History: Reports: Hypertension Other Cardiovascular History: takes no BP med. Respiratory History: Reports: Asthma, Sleep Apnea Other Respiratory History: takes no meds for asthma., wears CPAP at [facility] Gastrointestinal History: Reports: GERD Genitourinary History: Reports: None Musculoskeletal History: Reports: Back Pain, Chronic, Neck Pain, Chronic Other Musculoskeletal History: chronic neck and back pain, radiating into bi- lat legs into toes, blown disk to back Neurological History: Reports: Migraines Psychiatric History: Reports: Anxiety, Depression Endocrine/Metabolic History: Reports: Obesity/BMI 30+ Hematologic History: Reports: None Immunologic History: Reports: None Oncologic (Cancer) History: Reports: None Dermatologic History: Reports: None - Infectious Disease History Infectious Disease History: Reports: None - Past Surgical History HEENT Surgical History: Reports: Oral Surgery Social & Family History - Family History Family Medical History: Noncontributory Cardiac: Reports: [place], [place] - Tobacco Use Smoking Status *Q: Never Smoker - Caffeine Use Caffeine Use: Reports: Soda Other Caffeine Use: diet coke 2/day - Recreational Drug Use Recreational Drug Use: No - Living Situation & Occupation Living situation: Reports: Single, with Family (Sister) Occupation: Unemployed ED ROS GENERAL - Review of Systems Review Of Systems: See Below Constitutional: Reports: No Symptoms HEENT: Reports: Other (abrasion to his face) Respiratory: Reports: No Symptoms Cardiovascular: Reports: Syncope. Denies: Chest Pain Endocrine: Reports: No Symptoms GI/Abdominal: Reports: No Symptoms : Reports: No Symptoms Musculoskeletal: Reports: No Symptoms Neurological: Reports: No Symptoms ED EXAM, GENERAL - Physical Exam Exam: See Below Exam Limited By: No Limitations General Appearance: Alert, No Apparent Distress Ears: Normal External Exam Nose: Other (Abrasion to the bridge of the nose with some ecchymosis) Throat/Mouth: Normal Inspection Head: Other (Abrasion to his forehead) Neck: Normal Inspection, Supple, Non-Tender Respiratory/Chest: No Respiratory Distress, Lungs Clear, Normal Breath Sounds Cardiovascular: Regular Rate, Rhythm, No Edema, No Murmur GI/Abdominal: Soft, Non-Tender, No Organomegaly, No Mass Back Exam: Normal Inspection Extremities: Normal Inspection Course - Vital Signs Last Recorded V/S: Last Vital Signs Temp 97.7 F 03/26/19 12:25 Pulse 107 H 03/26/19 12:25 Resp 16 03/26/19 12:25 BP 144/96 H 03/26/19 12:25 Pulse Ox 95 03/26/19 12:25 - Orders/Labs/Meds Orders: Active Orders 24 hr Category Date Time Status Cardiac Monitoring [RC] . DIRECTED Care 03/26/19 13:03 Active EKG Documentation Completion [RC] STAT Care 03/26/19 13:04 Active Labs: Laboratory Tests 03/26/19 03/26/19 Range/Units 13:16 13:16 WBC 8.19 (4.23-9.07) K/mm3 RBC 5.09 (4.63-6.08) M/mm3 Hgb 15.7 D (13.7-17.5) gm/dl Hct 47.4 (40.1-51.0) % MCV 93.1 H (79.0-92.2) fl MCH 30.8 (25.7-32.2) pg MCHC 33.1 (32.2-35.5) g/dl RDW Std Deviation 44.1 H (35.1-43.9) fL Plt Count 255 (163-337) K/mm3 MPV 9.5 (9.4-12.3) fl Neut % (Auto) 63.8 (34.0-67.9) % Lymph % (Auto) 24.7 (21.8-53.1) % [place] % (Auto) 9.9 (5.3-12.2) % Eos % (Auto) 0.9 (0.8-7.0) Baso % (Auto) 0.2 (0.1-1.2) % Neut # (Auto) 5.23 (1.78-5.38) K/mm3 Lymph # (Auto) 2.02 (1.32-3.57) K/mm3 [place] # (Auto) 0.81 (0.30-0.82) K/mm3 Eos # (Auto) 0.07 (0.04-0.54) K/mm3 Baso # (Auto) 0.02 (0.01-0.08) K/mm3 Sodium 141 (136-145) mEq/L Potassium 3.3 L (3.5-5.1) mEq/L Chloride 100 (98-107) mEq/L Carbon Dioxide 31 (21-32) mEq/L Anion Gap 13.3 (5-15) BUN 15 (7-18) mg/dL Creatinine 1.2 (0.7-1.3) mg/dL Est Cr Clr Drug Dosing 69.41 mL/min Estimated GFR (MDRD) > 60 (>60) mL/min BUN/Creatinine Ratio 12.5 L (14-18) Glucose 103 (74-106) mg/dL Calcium 8.9 (8.5-10.1) mg/dL Total Bilirubin 0.6 (0.2-1.0) mg/dL AST 17 (15-37) U/L ALT 25 (16-63) U/L Alkaline Phosphatase 88 (46-116) U/L Troponin I < 0.017 (0.00-0.056) ng/mL Total Protein 8.3 H (6.4-8.2) g/dl Albumin 4.2 (3.4-5.0) g/dl Globulin 4.1 gm/dL Albumin/Globulin Ratio 1.0 (1-2) - Re-Assessments/Exams Free Text/Narrative Re-Assessment/Exam: 03/26/19 14:57 I ordered an EKG that shows a NSR with no acute changes. His labs look good. I will have him take half of his norflex 2 times per day and then increase in 5 days. Departure - Departure Time of Disposition: 15:00 Disposition: Home, Self-Care 01 Condition: Good Clinical Impression: Syncope Qualifiers: Syncope type: unspecified Qualified Code(s): R55 - Syncope and collapse Abrasion of face Qualifiers: Encounter type: initial encounter Qualified Code(s): S00.81XA - Abrasion of other part of head, initial encounter Referrals: Balta Bianchi MD [Primary Care Provider] - 1 Week Additional Instructions: Clean the abrasions 2 times per day with warm soapy water and apply antibiotic ointment after for 3 days and then let it be dry after that. Take 1/2 of the norflex 2 times per day for 5 days and then try a full pill. Please return if you are worse. Sepsis Event Note - Evaluation Sepsis Screening Result: No Definite Risk - Focused Exam Vital Signs: Vital Signs Temp Pulse Resp BP Pulse Ox 03/26/19 12:25 97.7 F 107 H 16 144/96 H 95 Date Exam was Performed: 03/26/19 Time Exam was Performed: 14:53 - My Orders Last 24 Hours: My Active Orders 03/26/19 13:03 Cardiac Monitoring [RC] . DIRECTED 03/26/19 13:04 EKG Documentation Completion [RC] STAT - Assessment/Plan Last 24 Hours: My Active Orders 03/26/19 13:03 Cardiac Monitoring [RC] . DIRECTED 03/26/19 13:04 EKG Documentation Completion [RC] STAT
== END 2019-03-26 15:11 | disposition home or self-care (01) ==
LOC: JD.ED 12:17
DX: S00.81XA Abrasion of other part of head, initial encounter (principal); R55 Syncope and collapse; I10 Essential (primary) hypertension; J45.909 Unspecified asthma, uncomplicated; E66.9 Obesity, unspecified; F32.9 Major depressive disorder, single episode, unspecified; Z79.51 Long term (current) use of inhaled steroids; Z68.39 Body mass index [BMI] 39.0-39.9, adult; Z79.899 Other long term (current) drug therapy; W01.198A Fall on same level from slipping, tripping and stumbling with subsequent striking against other object, initial encounter; Y92.89 Other specified places as the place of occurrence of the external cause
CPT/HCPCS: 36415; 80053; 84484; 85025; 93005; 99282; 99284-25

== ENCOUNTER 2019-04-02 17:05 | Emergency (ER) | payer MEDICAID ==
[2019-04-02 17:21] VITALS: BP 149/111; PULSE 97
--- NOTE | 2019-04-02 18:23 | EDM.PDOC ---
ED HPI GENERAL MEDICAL PROBLEM - General Chief Complaint: Abdominal Pain Stated Complaint: FALL ON HEADACHE AND ABD PAIN Time Seen by Provider: 04/02/19 17:27 Source of Information: Reports: Patient History Limitations: Reports: No Limitations - History of Present Illness INITIAL COMMENTS - FREE TEXT/NARRATIVE: The patient presents with lower abdominal fullness and lightheadedness. This has been going on for over a week. He was seen here on the for a fall and CTs were done and labs and everything looked good. He was taking norflex at that time and he stopped taking it and he still is lightheaded. He has no headache, neck pain, chest pain or shortness of breath. He has no nausea or vomiting. He has no dysuria. A couple days ago he did have some blood in his stool and then he had some dark stools. Onset: Gradual Duration: Week(s): Location: Reports: Abdomen Quality: Reports: Other (Fullness) Severity: Mild Improves with: Reports: None Worsens with: Reports: None Associated Symptoms: Denies: Chest Pain, Fever/Chills, Headaches, Nausea/ Vomiting - Related Data Allergies Allergy/AdvReac Type Severity Reaction Status Date / Time No Known Allergies Allergy Verified 04/02/19 17:21 Home Meds: Home Meds DULoxetine [Cymbalta] 60 mg PO DAILY 12/27/15 [History] Nabumetone 500 mg PO BID 12/27/15 [History] Acetaminophen/HYDROcodone [[place] 325-5 MG] 1 tab PO Q6H PRN 10/24/16 [History] Budesonide/Formoterol [Symbicort 160-4.5 MCG] 2 puff INH BID 10/24/16 [History] Losartan/Hydrochlorothiazide [Losartan-HCTZ 50-12.5 MG] 1 tab PO DAILY 10/24/16 [History] Amitriptyline [Elavil] 50 mg PO DAILY 09/01/17 [History] Cyanocobalamin (Vitamin B12) [Vitamin B12] 500 mcg PO DAILY 05/12/18 [History] Albuterol Sulfate [Albuterol Sulfate Hfa] 2 puff INH Q6HR PRN 03/05/19 [History] Orphenadrine [Norflex] 1 tab PO Q12H PRN #14 tab.er 03/05/19 [Rx] Past Medical History HEENT History: Reports: Impaired Vision Other HEENT History: wears eyeglasses Cardiovascular History: Reports: Hypertension Other Cardiovascular History: takes no BP med. Respiratory History: Reports: Asthma, Sleep Apnea Other Respiratory History: takes no meds for asthma., wears CPAP at noc Gastrointestinal History: Reports: GERD Genitourinary History: Reports: None Musculoskeletal History: Reports: Back Pain, Chronic, Neck Pain, Chronic Other Musculoskeletal History: chronic neck and back pain, radiating into bi- lat legs into toes, blown disk to back Neurological History: Reports: Migraines Psychiatric History: Reports: Anxiety, Depression Endocrine/Metabolic History: Reports: Obesity/BMI 30+ Hematologic History: Reports: None Immunologic History: Reports: None Oncologic (Cancer) History: Reports: None Dermatologic History: Reports: None - Infectious Disease History Infectious Disease History: Reports: None - Past Surgical History HEENT Surgical History: Reports: Oral Surgery Social & Family History - Family History Family Medical History: Noncontributory Cardiac: Reports: [place] - Tobacco Use Smoking Status *Q: Never Smoker Second Hand Smoke Exposure: No - Caffeine Use Caffeine Use: Reports: None Other Caffeine Use: diet coke 2/day - Recreational Drug Use Recreational Drug Use: No - Living Situation & Occupation Living situation: Reports: Single, with Family (Sister) Occupation: Unemployed ED ROS GENERAL - Review of Systems Review Of Systems: See Below Constitutional: Reports: No Symptoms HEENT: Reports: No Symptoms Respiratory: Reports: No Symptoms Cardiovascular: Reports: No Symptoms Endocrine: Reports: No Symptoms GI/Abdominal: Reports: Abdominal Pain, Black Stool. Denies: Nausea, Vomiting : Reports: No Symptoms Musculoskeletal: Reports: No Symptoms ED EXAM, GI/ABD - Physical Exam Exam: See Below Exam Limited By: No Limitations General Appearance: Alert, No Apparent Distress Ears: Normal External Exam Nose: Normal Inspection Head: Atraumatic, Normocephalic Neck: Normal Inspection Respiratory/Chest: No Respiratory Distress, Lungs Clear, Normal Breath Sounds Cardiovascular: Regular Rate, Rhythm, No Edema, No Murmur GI/Abdominal Exam: Soft, Non-Tender, No Organomegaly, No Mass Rectal (Males) Exam: Normal Exam, Normal Rectal Tone, Heme - Stool Back Exam: Normal Inspection Extremities: Normal Inspection EKG INTERPRETATION EKG Date: 04/02/19 Time: 18:28 Rhythm: NSR Rate (Beats/Min): 76 [place]: Normal P-Wave: Present QRS: Normal ST-T: Normal QT: Normal Course - Vital Signs Last Recorded V/S: Last Vital Signs Temp 97.5 F 04/02/19 17:16 Pulse 97 04/02/19 17:16 Resp 16 04/02/19 17:16 BP 149/111 H 04/02/19 17:16 Pulse Ox 97 04/02/19 17:16 - Orders/Labs/Meds Orders: Active Orders 24 hr Category Date Time Status Cardiac Monitoring [RC] . DIRECTED Care 04/02/19 17:34 Active EKG Documentation Completion [RC] STAT Care 04/02/19 17:34 Active Labs: Laboratory Tests 04/02/19 04/02/19 Range/Units 17:53 17:53 WBC 5.76 (4.23-9.07) K/mm3 RBC 4.76 (4.63-6.08) M/mm3 Hgb 14.6 (13.7-17.5) gm/dl Hct 43.6 (40.1-51.0) % MCV 91.6 (79.0-92.2) fl MCH 30.7 (25.7-32.2) pg MCHC 33.5 (32.2-35.5) g/dl RDW Std Deviation 42.6 (35.1-43.9) fL Plt Count 251 (163-337) K/mm3 MPV 9.3 L (9.4-12.3) fl Neut % (Auto) 58.7 (34.0-67.9) % Lymph % (Auto) 28.5 (21.8-53.1) % [place] % (Auto) 10.2 (5.3-12.2) % Eos % (Auto) 1.6 (0.8-7.0) Baso % (Auto) 0.5 (0.1-1.2) % Neut # (Auto) 3.38 (1.78-5.38) K/mm3 Lymph # (Auto) 1.64 (1.32-3.57) K/mm3 [place] # (Auto) 0.59 (0.30-0.82) K/mm3 Eos # (Auto) 0.09 (0.04-0.54) K/mm3 Baso # (Auto) 0.03 (0.01-0.08) K/mm3 Sodium 141 (136-145) mEq/L Potassium 3.9 (3.5-5.1) mEq/L Chloride 105 (98-107) mEq/L Carbon Dioxide 26 (21-32) mEq/L Anion Gap 13.9 (5-15) BUN 11 (7-18) mg/dL Creatinine 1.0 (0.7-1.3) mg/dL Est Cr Clr Drug Dosing 83.29 mL/min Estimated GFR (MDRD) > 60 (>60) mL/min BUN/Creatinine Ratio 11.0 L (14-18) Glucose 111 H (74-106) mg/dL Calcium 8.4 L (8.5-10.1) mg/dL Total Bilirubin 0.3 (0.2-1.0) mg/dL AST 17 (15-37) U/L ALT 23 (16-63) U/L Alkaline Phosphatase 77 (46-116) U/L Troponin I < 0.017 (0.00-0.056) ng/mL Total Protein 7.5 (6.4-8.2) g/dl Albumin 3.6 (3.4-5.0) g/dl Globulin 3.9 gm/dL Albumin/Globulin Ratio 0.9 L (1-2) - Re-Assessments/Exams Free Text/Narrative Re-Assessment/Exam: 04/02/19 18:38 I ordered labs and an EKG. His stool was guiac negative. His EKG shows a NSR with no acute changes. His CBC and CMP look good. His troponin is negative. Departure - Departure Time of Disposition: 18:45 Disposition: Home, Self-Care 01 Condition: Good Clinical Impression: Lightheaded Abdominal pain Qualifiers: Abdominal location: lower abdomen, unspecified Qualified Code(s): R10.30 - Lower abdominal pain, unspecified - Discharge Information *PRESCRIPTION DRUG MONITORING PROGRAM REVIEWED*: Not Applicable *COPY OF PRESCRIPTION DRUG MONITORING REPORT IN PATIENT VERONICA: Not Applicable Referrals: Balta Bianchi MD [Primary Care Provider] - 1 Week Forms: ED Department Discharge Additional Instructions: Take your medication as prescribed. Do not take the norflex. Drink plenty of fluids. Please return if you are worse. Sepsis Event Note - Evaluation Sepsis Screening Result: No Definite Risk - Focused Exam Vital Signs: Vital Signs Temp Pulse Resp BP Pulse Ox 04/02/19 17:16 97.5 F 97 16 149/111 H 97 Date Exam was Performed: 04/02/19 Time Exam was Performed: 18:41 - My Orders Last 24 Hours: My Active Orders 04/02/19 17:34 Cardiac Monitoring [RC] . DIRECTED EKG Documentation Completion [RC] STAT - Assessment/Plan Last 24 Hours: My Active Orders 04/02/19 17:34 Cardiac Monitoring [RC] . DIRECTED EKG Documentation Completion [RC] STAT
== END 2019-04-02 19:00 | disposition home or self-care (01) ==
LOC: JD.ED 17:05
DX: R42 Dizziness and giddiness (principal); R10.30 Lower abdominal pain, unspecified; I10 Essential (primary) hypertension; J45.909 Unspecified asthma, uncomplicated; F41.9 Anxiety disorder, unspecified; F32.9 Major depressive disorder, single episode, unspecified; E66.9 Obesity, unspecified; Z79.899 Other long term (current) drug therapy; Z98.890 Other specified postprocedural states
CPT/HCPCS: 36415; 80053; 84484; 85025; 93005; 93010; 99282; 99284-25

== ENCOUNTER 2019-06-11 06:57 | Day surgery (SDC) | payer MEDICAID ==
[~2019-06-11 06:57] MED LIST: Lactated Ringers 1,000 ML IV SCH; Lidocaine 1%/Sod Bicarbonate in NS 8.4% 1 ML Syringe IDERM PRN; Sodium Chloride 0.9% 10 ML Syringe FLUSH PRN
--- NOTE | 2019-06-11 07:32 | PCM.PREANE ---
Preanesthetic Assessment - Procedure Proposed Procedure: EGD, colonoscopy - Anesthesia/Transfusion/Family Hx Anesthesia History: Prior Anesthesia Without Reaction Family History of Anesthesia Reaction: No Transfusion History: No Prior Transfusion(s) Intubation History: Unknown - Review of Systems General: No Symptoms Pulmonary: Other (asthma ) Cardiovascular: No Symptoms Gastrointestinal: No Symptoms Neurological: Other (low back pain currently / ) Other: Reports: Depression, Anxiety - Physical Assessment NPO Status Date: 06/11/19 NPO Status Time: 00:00 Height: 1.68 m Weight: 108 kg ASA Class: 3 Mental Status: Alert & Oriented x3 Dentition: Reports: Edentulous Thyro-Mental Finger Breadths: 3 Mouth Opening Finger Breadths: 4 ROM/Head Extension: Full Lungs: Clear to Auscultation, Normal Respiratory Effort, Decreased Breath Sounds Cardiovascular: Regular Rate, Regular Rhythm - Allergies Allergies/Adverse Reactions: Allergies Allergy/AdvReac Type Severity Reaction Status Date / Time No Known Allergies Allergy Verified 04/02/19 17:21 - Blood Blood Available: No - Anesthesia Plan Pre-Op Medication Ordered: None - Acknowledgements Anesthesia Type Planned: MAC Pt an Appropriate Candidate for the Planned Anesthesia: Yes Alternatives and Risks of Anesthesia Discussed w Pt/Guardian: Yes Pt/Guardian Understands and Agrees with Anesthesia Plan: Yes PreAnesthesia Questionnaire HEENT History: Reports: None Other HEENT History: wears eyeglasses Cardiovascular History: Reports: High Cholesterol, Hypertension, Other (See Below) Other Cardiovascular History: Chest pain Respiratory History: Reports: Asthma, Sleep Apnea Other Respiratory History: Uses CPAP Gastrointestinal History: Reports: GERD, Other (See Below) Other Gastrointestinal History: Constipation Genitourinary History: Reports: None Musculoskeletal History: Reports: Fibromyalgia, Neck Pain, Chronic, Osteoporosis Other Musculoskeletal History: SI pain, lumbago Neurological History: Reports: Other (See Below) Other Neuro History: Disc displacement, lumbar strain, dizziess, cerviclagia Psychiatric History: Reports: Anxiety, Depression, PTSD Endocrine/Metabolic History: Reports: Other (See Below) Other Endocrine/Metabolic History: Vitamin B deficiency Hematologic History: Reports: None Immunologic History: Reports: None Oncologic (Cancer) History: Reports: None Dermatologic History: Reports: None - Infectious Disease History Infectious Disease History: Reports: None - Past Surgical History Head Surgeries/Procedures: Reports: None HEENT Surgical History: Reports: Oral Surgery Cardiovascular Surgical History: Reports: None Respiratory Surgical History: Reports: None GI Surgical History: Reports: Colonoscopy Male Surgical History: Reports: None Endocrine Surgical History: Reports: None Neurological Surgical History: Reports: None Musculoskeletal Surgical History: Reports: None Oncologic Surgical History: Reports: None Dermatological Surgical History: Reports: None - SUBSTANCE USE Smoking Status *Q: Never Smoker Second Hand Smoke Exposure: No Recreational Drug Use History: No - HOME MEDS Home Medications: Home Meds DULoxetine [Cymbalta] 60 mg PO DAILY 12/27/15 [History] Nabumetone 500 mg PO BID 12/27/15 [History] Acetaminophen/HYDROcodone [[place] 325-5 MG] 1 tab PO Q6H PRN 10/24/16 [History] Budesonide/Formoterol [Symbicort 160-4.5 MCG] 2 puff INH BID 10/24/16 [History] Losartan/Hydrochlorothiazide [Losartan-HCTZ 50-12.5 MG] 1 tab PO DAILY 10/24/16 [History] Amitriptyline [Elavil] 50 mg PO DAILY 09/01/17 [History] Cyanocobalamin (Vitamin B12) [Vitamin B12] 500 mcg PO DAILY 05/12/18 [History] Albuterol Sulfate [Albuterol Sulfate Hfa] 2 puff INH Q6HR PRN 03/05/19 [History] Orphenadrine [Norflex] 1 tab PO Q12H PRN #14 tab.er 03/05/19 [Rx] - CURRENT (IN HOUSE) MEDS Current Meds: Current Medications Lactated Ringer's (Ringers, Lactated) 1,000 mls @ 125 mls/hr IV ASDIRECTED TL Stop: 06/11/19 23:00 Lidocaine/Sodium Bicarbonate (Buffered Lidocaine 1% In Ns 8.4%) 0.25 ml IDERM ONETIME PRN PRN Reason: Prior to IV Start Stop: 06/11/19 18:00 Sodium Chloride (Saline Flush) 10 ml FLUSH ASDIRECTED PRN PRN Reason: Keep Vein Open Stop: 06/11/19 18:00
[2019-06-11] MEDS ORDERED: Albuterol 0.021% 0.63 MG/3 ML Neb Soln NEB SCH ×2 (07:39→07:49)
[2019-06-11] MEDS ORDERED: Albuterol 0.083% 2.5 MG/3 ML Neb Soln ONE (07:46)
[2019-06-11] MEDS ORDERED: Albuterol 0.083% 2.5 MG/3 ML Neb Soln NEB SCH (07:50)
[2019-06-11] MEDS ORDERED: Albuterol 0.042% 1.25 MG/3 ML Neb Soln NEB SCH (08:00)
--- NOTE | 2019-06-11 09:09 | PCM48HPAN ---
Post Anesthesia Note - EVALUATION WITHIN 48HRS OF ANESTHETIC Vital Signs in Normal Range: Yes Patient Participated in Evaluation: Yes Respiratory Function Stable: Yes Airway Patent: Yes Cardiovascular Function Stable: Yes Hydration Status Stable: Yes Pain Control Satisfactory: Yes Nausea and Vomiting Control Satisfactory: Yes Mental Status Recovered: Yes Vital Signs: Last Vital Signs Temp 36.6 C 06/11/19 07:15 Pulse 97 06/11/19 07:15 Resp 18 06/11/19 07:15 BP 140/86 06/11/19 07:15 Pulse Ox 95 06/11/19 07:49
[2019-06-11 09:31] VITALS: PULSE 81
[2019-06-11 09:58] VITALS: BP 130/87
--- NOTE | 2019-06-11 11:59 | PROC ---
DATE OF OPERATION: 06/11/2019 SURGEON: Ajith Nguyen MD PREOPERATIVE DIAGNOSES: Epigastric pain and hematochezia. POSTOPERATIVE DIAGNOSES: 1. Severe esophagitis. 2. Gastritis. 3. Internal hemorrhoids. OPERATION PERFORMED: 1. Esophagogastroduodenoscopy with biopsies. 2. Colonoscopy. ESTIMATED BLOOD LOSS: Minimal. ANESTHESIA: Monitored anesthesia care. COMPLICATIONS: None. INDICATIONS AND CONSENT: Mr. Lund is a 49-year-old male who has been having epigastric pain for about 2 months. The pain started acutely after he went to the emergency department with cervical tenderness and nausea and was given Phenergan. He reports that since that time, which was about 2 months ago, he has been having epigastric pain. At 1 time, he had large volume hematochezia that happened once, but has never happened since. He came to my office, I evaluated him, I recommended esophagogastroduodenoscopy and colonoscopy to evaluate the source of epigastric pain as well as hematochezia. I discussed with the patient risks, benefits, and alternatives. Risks discussed include perforation and bleeding, reaction to medications, and possible infection. The patient understood, agreed to proceed with the procedure, and informed consent was obtained. DESCRIPTION OF PROCEDURE: The patient was taken to the procedure room, placed in left lateral decubitus position. Following induction of monitored anesthesia care, a time-out was performed. We began the procedure with an EGD scope that was placed into the mouth, advanced through the esophagus. The upper and mid esophagus appeared normal. The distal esophagus had severe esophagitis from about 30 cm down to 35 cm. The Z-line was at 35 cm and irregular. The GE junction appeared edematous , which was at 35 to 37 cm. There was a small sliding hiatal hernia. The stomach, fundus, and body appeared normal. The antrum had areas of erythema and linear erosions, so was the duodenal bulb. The scope was advanced to the second portion of duodenum. This was normal. Biopsies were taken from the duodenal bulb as well as the antrum for histologic examination as well as H pylori. Once again, on retroflexion, the cardia was normal. The fundus was normal. There was a small sliding hiatal hernia and no other abnormalities. The scope was withdrawn back into the GE junction. Biopsies were taken here for histology. Biopsies were taken in the distal esophagus as well for histology. At this point, the air was suctioned out from the stomach and the scope was withdrawn. EBL was minimal. Next, we proceeded with colonoscopy. Perianal exam was normal. Digital rectal exam revealed internal hemorrhoids, but otherwise unremarkable. Scope was inserted and taken all the way to the cecum. The ileocecal valve was intubated and the terminal ileum was inspected and appeared normal. Cecum, as well, appeared normal. Ileocecal valve, appendiceal orifice, and terminal ileum were photographed. Then, the scope was withdrawn slowly examining the entirety of colonic mucosa. There was no other polyps or other abnormalities that were noted. On retroflexion in the rectum, about grade 2 internal hemorrhoids were noted without any stigmata of bleeding. At this point, the air was suctioned out from the descending colon, sigmoid colon, and rectum and the scope was withdrawn. No immediate complications. Due to severe esophagitis, the patient will be placed on Carafate for 1 month and omeprazole 20 mg b.i.d. for 3 months and the patient will come back to surgery clinic in 2 weeks for postop check. I recommend a repeat esophagogastroduodenoscopy in 3-6 months to evaluate the esophagus to see if the esophagitis has resolved. All these recommendations were discussed with the patient and the patient's sister at bedside. MMSHANON /[id number] EMILY
== END 2019-06-11 10:00 | disposition home or self-care (01) ==
LOC: JD.SDS 06:57
PROVIDERS: ATTEND Surgery
DX: K64.1 Second degree hemorrhoids (principal); K29.70 Gastritis, unspecified, without bleeding; K21.0 Gastro-esophageal reflux disease with esophagitis; K44.9 Diaphragmatic hernia without obstruction or gangrene; F32.9 Major depressive disorder, single episode, unspecified; E78.49 Other hyperlipidemia; I10 Essential (primary) hypertension; G47.30 Sleep apnea, unspecified; G89.29 Other chronic pain; Z79.899 Other long term (current) drug therapy; Z99.89 Dependence on other enabling machines and devices
CPT/HCPCS: 43239; 45378; 94640; J7120; 00813; J2001; J2250; J2704; J3010

== ENCOUNTER 2019-09-27 04:10 | Emergency (ER) | payer MEDICAID ==
[2019-09-27 04:21] VITALS: BP 112/99; PULSE 89
[2019-09-27] MEDS ORDERED: Ketorolac 60 MG/2 ML SDV IM ONE (04:40)
--- NOTE | 2019-09-27 04:49 | EDM.PDOC ---
ED HPI GENERAL MEDICAL PROBLEM - General Chief Complaint: Back Pain or Injury Stated Complaint: BACK AND NECK PAIN Time Seen by Provider: 09/27/19 04:21 Source of Information: Reports: Patient History Limitations: Reports: No Limitations - History of Present Illness INITIAL COMMENTS - FREE TEXT/NARRATIVE: Mr. Lund is a pleasant 48-year-old man with a past medical history significant for chronic neck and back pain. He states that his pain is due to a "blown disc" but he does not recall where the disc is, and he cannot explain how a single disc herniation could cause pain all over his body. Further, he states that he is not a candidate for surgery, not because he has a medical problem that would increase his surgical risk, but because, he states, they cannot guarantee that surgery would work. The patient tells me that the plan, therefore, is for him to be on pain medication for the rest of his life. He states that he was previously treated by a pain direct mail manager in [place], but for reasons unclear, that relationship ended in January or February 2019. Since then, the patient has been prescribed [place] 5/325 per his PCP. The patient now presents to the ED stating that he has been experiencing a flare of his chronic neck and back pain for the past 5 days. He states that the pain extends to his bilateral upper and lower extremities. He denies suffering any injury, such as a fall, that might have triggered a worsening of his chronic pain. He states that he took 2 tablets of [place] 5/325 around 02:00 this morning, without adequate relief of his pain, therefore he drove himself to the ED. He is requesting "something" to treat his pain. The patient acknowledges that he has not called his PCP over the past 5 days, stating that he intends to do that this morning. Here in the ED, the patient is found to be hemodynamically stable, afebrile, saturating 96% on room air. Other than the patient's chronic pain, the patient denies recent fever, chills, sore throat, ear pain, nasal or sinus congestion, cough, dyspnea, chest pain, palpitations, nausea, vomiting, constipation, diarrhea, abdominal pain, urinary symptoms, recent weight gain or weight loss, recent bloody bowel movements or black bowel movements, recent joint aches, headaches, or rashes. The patient's PCP is Dr. Balta Bianchi. The patient does not recall the name of his Gasoline Engine Assembler, in [place]. Back Pain Score (Numeric/FACES): 8 - Related Data Allergies Allergy/AdvReac Type Severity Reaction Status Date / Time No Known Allergies Allergy Verified 09/27/19 04:19 Home Meds: Home Meds DULoxetine [Cymbalta] 60 mg PO DAILY 12/27/15 [History] Nabumetone 500 mg PO BID 12/27/15 [History] Acetaminophen/HYDROcodone [[place] 325-5 MG] 1 tab PO Q6H PRN 10/24/16 [History] Budesonide/Formoterol [Symbicort 160-4.5 MCG] 2 puff INH BID 10/24/16 [History] Losartan/Hydrochlorothiazide [Losartan-HCTZ 50-12.5 MG] 1 tab PO DAILY 10/24/16 [History] Amitriptyline [Elavil] 50 mg PO BEDTIME 09/01/17 [History] Albuterol Sulfate [Albuterol Sulfate Hfa] 2 puff INH Q6HR PRN 03/05/19 [History] Omeprazole 20 mg PO BID 90 Days #90 tablet. 06/11/19 [Rx] Sucralfate 1 gm PO QID 30 Days #120 tablet 06/11/19 [Rx] Past Medical History HEENT History: Reports: Impaired Vision (wears eyeglasses) Cardiovascular History: Reports: Hypertension Respiratory History: Reports: Asthma (suspected, not tested), Sleep Apnea (nightly CPAP) Gastrointestinal History: Reports: GERD Psychiatric History: Reports: Anxiety, Depression Endocrine/Metabolic History: Reports: Obesity/BMI 30+ - Past Surgical History HEENT Surgical History: Reports: Oral Surgery (dental extractions) Social & Family History - Family History Family Medical History: Noncontributory Cardiac: Reports: [place] - Tobacco Use Smoking Status *Q: Never Smoker - Caffeine Use Caffeine Use: Reports: Soda Other Caffeine Use: diet coke 2/day - Alcohol Use Alcohol Use History: No - Recreational Drug Use Recreational Drug Use: No - Living Situation & Occupation Living situation: Reports: Single, with Family (Sister) Occupation: Unemployed ED ROS GENERAL - Review of Systems Review Of Systems: Comprehensive ROS is negative, except as noted in HPI. Musculoskeletal: Reports: Neck Pain (chronic), Back Pain (chronic) ED EXAM, GENERAL - Physical Exam Exam: See Below Exam Limited By: No Limitations General Appearance: Alert, WD/WN, No Apparent Distress Eye Exam: Bilateral Eye: EOMI, Normal Inspection Ears: Normal External Exam, Hearing Grossly Normal Nose: Normal Inspection Throat/Mouth: Normal Inspection, Normal Lips, Normal Voice, No Airway Compromise Head: Atraumatic, Normocephalic Neck: Normal Inspection, Full Range of Motion Respiratory/Chest: No Respiratory Distress, Lungs Clear, Normal Breath Sounds, No Accessory Muscle Use Cardiovascular: Normal Peripheral Pulses, Regular Rate, Rhythm, No Edema, No Gallop, No JVD, No Murmur, No Rub Peripheral Pulses: 3+: Radial (L), Radial (R) GI/Abdominal: Normal Bowel Sounds, Soft, Non-Tender, No Organomegaly, No Distention, No Abnormal Bruit, No Mass (Male) Exam: Deferred Rectal (Males) Exam: Deferred Back Exam: Normal Inspection, Full Range of Motion, NT Extremities: Normal Inspection, Normal Range of Motion, No Pedal Edema, Normal Capillary Refill Neurological: Alert, Oriented, Normal Cognition, No Motor/Sensory Deficits Psychiatric: Normal Affect Skin Exam: Warm, Dry, Intact, Normal Color, No Rash Course - Vital Signs Last Recorded V/S: Last Vital Signs Temp 36.7 C 09/27/19 04:19 Pulse 89 09/27/19 04:19 Resp 17 09/27/19 04:19 BP 112/99 H 09/27/19 04:19 Pulse Ox 96 09/27/19 04:19 - Orders/Labs/Meds Meds: Medications Discontinued Medications Generic Name Dose Route Start Last Admin Trade Name Harshad PRN Reason Stop Dose Admin Ketorolac Tromethamine 60 mg 09/27/19 04:40 Toradol IM 09/27/19 04:41 ONETIME ONE - Re-Assessments/Exams Free Text/Narrative Re-Assessment/Exam: 09/27/19 04:42 As above, the patient is complaining of a 5-day flare of his chronic neck and back pain, with involvement of his upper and lower extremities. He states that he took 2 tablets of his prescribed [place] 5/325 around 02:00, without adequate relief, then drove himself to the ED. He is requesting that I treat his pain with "something". I explained that I am not in a position to treat him with an opioid because: Opioids for chronic pain need to be prescribed by a single prescriber, in this case, his PCP. The patient appears to be in no distress whatsoever, with normal vital signs. The patient drove himself here. I will therefore treat the patient with a single injection of IM Toradol, and have him follow-up with his PCP later today, as he was planning. Departure - Departure Time of Disposition: 04:44 Disposition: Home, Self-Care 01 Condition: Good Clinical Impression: Generalized pain - Discharge Information *PRESCRIPTION DRUG MONITORING PROGRAM REVIEWED*: Yes *COPY OF PRESCRIPTION DRUG MONITORING REPORT IN PATIENT VERONICA: No Referrals: Balta Bianchi MD [Primary Care Provider] - Additional Instructions: You were seen in the emergency room for a 5-day flare of your chronic neck and back pain, with involvement of your upper and lower extremities. You were treated with a single injection of IM Toradol in the ER. Follow-up with your PCP, Dr. Balta Bianchi, at the next available appointment. If any other problems, please do not hesitate to return to the ER. Sepsis Event Note (ED) - Evaluation Sepsis Screening Result: No Definite Risk - Focused Exam Vital Signs: Vital Signs Temp Pulse Resp BP Pulse Ox 09/27/19 04:19 36.7 C 89 17 112/99 H 96
== END 2019-09-27 04:52 | disposition home or self-care (01) ==
LOC: JD.ED 04:10
DX: M54.2 Cervicalgia (principal); M54.9 Dorsalgia, unspecified; I10 Essential (primary) hypertension; K21.9 Gastro-esophageal reflux disease without esophagitis; F41.9 Anxiety disorder, unspecified; F32.9 Major depressive disorder, single episode, unspecified; E66.9 Obesity, unspecified; Z68.41 Body mass index [BMI] 40.0-44.9, adult; Z79.899 Other long term (current) drug therapy
CPT/HCPCS: 96372; 99283; J1885

== ENCOUNTER 2019-12-01 01:49 | Emergency (ER) | payer MEDICAID ==
[2019-12-01 02:52] VITALS: BP 133/78; PULSE 98
[2019-12-01] MEDS ORDERED: Ketorolac 60 MG/2 ML SDV IM ONE (03:19)
--- NOTE | 2019-12-01 03:22 | EDM.PDOC ---
ED HPI GENERAL MEDICAL PROBLEM - General Chief Complaint: Back Pain or Injury Stated Complaint: BACK PAIN Time Seen by Provider: 12/01/19 02:58 Source of Information: Reports: Patient History Limitations: Reports: No Limitations - History of Present Illness INITIAL COMMENTS - FREE TEXT/NARRATIVE: This is a 49-year-old male. He has a history of chronic low back pain. He apparently sees Dr. Bianchi for this when it first started back in 2003 and he was sent to a back doctor because he had a herniated disc but they did not do surgery. He gets a few hydrocodone from his doctor but they do not seem to be helping. He had onset of increased back pain about 1130 this evening and then he says the pain seems to go all over his body. He does have intermittent pain down his legs but it does not happen very often. He has no problems and walking though he does use a cane. He is sitting upright in bed on the edge of the bed with his feet hanging down with no difficulty. He denies any bowel or bladder dysfunction or incontinence. He is here because he wants something stronger than the hydrocodone. I explained to him that we do not provide narcotics for chronic low back pain and he would need to follow-up with his doctor again to see if he can get something stronger. I also suggested that since it has been 16 years since he had his original injury perhaps another MRI might give some information as to why it might be getting worse and maybe he needs to go back to see the back surgeon again. He says he will follow-up with his doctor. Lower Back Pain Score (Numeric/FACES): 10 - Related Data Allergies Allergy/AdvReac Type Severity Reaction Status Date / Time No Known Allergies Allergy Verified 12/01/19 02:52 Home Meds: Home Meds DULoxetine [Cymbalta] 60 mg PO DAILY 12/27/15 [History] Nabumetone 500 mg PO BID 12/27/15 [History] Acetaminophen/HYDROcodone [[place] 325-5 MG] 1 tab PO Q6H PRN 10/24/16 [History] Budesonide/Formoterol [Symbicort 160-4.5 MCG] 2 puff INH BID 10/24/16 [History] Losartan/Hydrochlorothiazide [Losartan-HCTZ 50-12.5 MG] 1 tab PO DAILY 10/24/16 [History] Amitriptyline [Elavil] 50 mg PO BEDTIME 09/01/17 [History] Albuterol Sulfate [Albuterol Sulfate Hfa] 2 puff INH Q6HR PRN 03/05/19 [History] Omeprazole 20 mg PO BID 90 Days #90 tablet. 06/11/19 [Rx] Past Medical History HEENT History: Reports: Impaired Vision Other HEENT History: wears eyeglasses Cardiovascular History: Reports: Hypertension Other Cardiovascular History: Chest pain Respiratory History: Reports: Asthma, Sleep Apnea Other Respiratory History: Uses CPAP Gastrointestinal History: Reports: GERD Other Gastrointestinal History: Constipation Genitourinary History: Reports: None Musculoskeletal History: Reports: Fibromyalgia, Neck Pain, Chronic, Osteoporosis Other Musculoskeletal History: SI pain, lumbago Neurological History: Reports: Other (See Below) Other Neuro History: Disc displacement, lumbar strain, dizziess, cerviclagia Psychiatric History: Reports: Anxiety, Depression Endocrine/Metabolic History: Reports: Obesity/BMI 30+ Other Endocrine/Metabolic History: Vitamin B deficiency Hematologic History: Reports: None Immunologic History: Reports: None Oncologic (Cancer) History: Reports: None Dermatologic History: Reports: None - Infectious Disease History Infectious Disease History: Reports: None - Past Surgical History Head Surgeries/Procedures: Reports: None HEENT Surgical History: Reports: Oral Surgery Male Surgical History: Reports: None Neurological Surgical History: Reports: None Musculoskeletal Surgical History: Reports: None Oncologic Surgical History: Reports: None Dermatological Surgical History: Reports: None Social & Family History - Family History Family Medical History: Noncontributory Cardiac: Reports: [place] - Tobacco Use Smoking Status *Q: Never Smoker - Caffeine Use Caffeine Use: Reports: Soda Other Caffeine Use: diet coke 2/day - Living Situation & Occupation Living situation: Reports: Single, with Family (Sister) Occupation: Unemployed ED ROS GENERAL - Review of Systems Review Of Systems: See Below Constitutional: Denies: Fever, Chills HEENT: Reports: No Symptoms Respiratory: Reports: No Symptoms Cardiovascular: Reports: No Symptoms Endocrine: Reports: No Symptoms GI/Abdominal: Reports: No Symptoms : Reports: No Symptoms Musculoskeletal: Reports: Back Pain Skin: Reports: No Symptoms Neurological: Reports: Difficulty Walking Psychiatric: Reports: No Symptoms Hematologic/Lymphatic: Reports: No Symptoms ED EXAM, UPPER BACK/NECK PAIN - Physical Exam Exam: See Below Exam Limited By: No Limitations General Appearance: Alert, WD/WN, No Apparent Distress Eye Exam: Bilateral Eye: Normal Inspection Ears Exam: Normal External Exam Head Exam: Normocephalic Neck Exam: Full Range of Motion, Other (Intimal soreness on palpation) Cardiovascular/Respiratory: No Respiratory Distress Back Exam: Other (Lanes of pain in the upper lumbar area mostly on the right side with some paraspinal muscle tightness noted. His mid back and thoracic area is nontender on palpation he does not appear to have any midline tenderness of the spine.) Extremities: Normal Inspection, Normal Range of Motion Neurologic: No Motor/Sensory Deficits, Alert, Normal Mood/Affect, Oriented x 3 Psychiatric: Normal Affect, Normal Mood Skin Exam: Normal Color, Warm/Dry Course - Vital Signs Last Recorded V/S: Last Vital Signs Temp 97.9 F 12/01/19 02:49 Pulse 98 12/01/19 02:49 Resp 16 12/01/19 02:49 BP 133/78 12/01/19 02:49 Pulse Ox 99 12/01/19 02:49 Departure - Departure Time of Disposition: 03:19 Disposition: Home, Self-Care 01 Condition: Fair Clinical Impression: Acute exacerbation of chronic low back pain, Spasm of muscle of lower back - Discharge Information *PRESCRIPTION DRUG MONITORING PROGRAM REVIEWED*: Not Applicable *COPY OF PRESCRIPTION DRUG MONITORING REPORT IN PATIENT VERONICA: Not Applicable Instructions: Muscle Cramps and Spasms, [id number], Chronic Pain, Adult Referrals: Balta Bianchi MD [Primary Care Provider] - Additional Instructions: Continue with your hydrocodone and you may take 2 tablets at a time every 6 hours for the pain, consider using ice or heat to your lower back to help with the discomfort, you may also consider taking a Tylenol 500 and Motrin 200 mg at the same time since it supposed to help pain like a Percocet, follow-up with your family doctor for reevaluation of your low back pain and possible repeat MRI or referral to a back specialist, return to the ER if needed Sepsis Event Note (ED) - Evaluation Sepsis Screening Result: No Definite Risk - Focused Exam Vital Signs: Vital Signs Temp Pulse Resp BP Pulse Ox 12/01/19 02:49 97.9 F 98 16 133/78 99
== END 2019-12-01 03:30 | disposition home or self-care (01) ==
LOC: JD.ED 01:49
DX: M62.830 Muscle spasm of back (principal); M54.5 Low back pain; I10 Essential (primary) hypertension; J45.909 Unspecified asthma, uncomplicated; E66.9 Obesity, unspecified; K21.9 Gastro-esophageal reflux disease without esophagitis; F41.9 Anxiety disorder, unspecified; F32.9 Major depressive disorder, single episode, unspecified; Z68.1 Body mass index [BMI] 19.9 or less, adult; Z79.899 Other long term (current) drug therapy
CPT/HCPCS: 96372; 99283; J1885

== ENCOUNTER 2020-09-19 16:16 | Emergency (ER) | payer MEDICAID ==
[2020-09-19 16:28] VITALS: BP 168/106; PULSE 92
[2020-09-19] MEDS ORDERED: Lidocaine 1% with EPINEPHrine 1:100,000 10 ML MDV INJECT ONE (16:29)
--- NOTE | 2020-09-19 16:35 | EDM.PDOC ---
ED HPI GENERAL MEDICAL PROBLEM - General Chief Complaint: Laceration Stated Complaint: R ARM LAC Time Seen by Provider: 09/19/20 16:27 Source of Information: Reports: Patient History Limitations: Reports: No Limitations - History of Present Illness INITIAL COMMENTS - FREE TEXT/NARRATIVE: The patient presents with a laceration to his right forearm. He was at [facility] and a jar fell and a piece of glass flew and cut his right forearm. He has a 1 cm laceration to the right proximal forearm. His tetanus is up to date. Onset: Sudden Location: Reports: Upper Extremity, Right Quality: Reports: Sharp Severity: Mild Improves with: Reports: None Worsens with: Reports: None Associated Symptoms: Reports: No Other Symptoms - Related Data Allergies Allergy/AdvReac Type Severity Reaction Status Date / Time No Known Allergies Allergy Verified 09/19/20 16:29 Home Meds: Home Meds DULoxetine [Cymbalta] 60 mg PO DAILY 12/27/15 [History] Nabumetone 500 mg PO BID 12/27/15 [History] Acetaminophen/HYDROcodone [[place] 325-5 MG] 1 tab PO Q6H PRN 10/24/16 [History] Budesonide/Formoterol [Symbicort 160-4.5 MCG] 2 puff INH BID 10/24/16 [History] Losartan/Hydrochlorothiazide [Losartan-HCTZ 50-12.5 MG] 1 tab PO DAILY 10/24/16 [History] Amitriptyline [Elavil] 50 mg PO BEDTIME 09/01/17 [History] Albuterol Sulfate [Albuterol Sulfate Hfa] 2 puff INH Q6HR PRN 03/05/19 [History] Omeprazole 20 mg PO BID 90 Days #90 tablet. 06/11/19 [Rx] Past Medical History HEENT History: Reports: Impaired Vision Other HEENT History: wears eyeglasses Cardiovascular History: Reports: Hypertension Other Cardiovascular History: Chest pain Respiratory History: Reports: Asthma, Sleep Apnea Other Respiratory History: Uses CPAP Gastrointestinal History: Reports: GERD Other Gastrointestinal History: Constipation Genitourinary History: Reports: None Musculoskeletal History: Reports: Fibromyalgia, Neck Pain, Chronic, Osteoporosis Other Musculoskeletal History: SI pain, lumbago Neurological History: Reports: Other (See Below) Other Neuro History: Disc displacement, lumbar strain, dizziess, cerviclagia Psychiatric History: Reports: Anxiety, Depression Endocrine/Metabolic History: Reports: Obesity/BMI 30+ Other Endocrine/Metabolic History: Vitamin B deficiency Hematologic History: Reports: None Immunologic History: Reports: None Oncologic (Cancer) History: Reports: None Dermatologic History: Reports: None - Infectious Disease History Infectious Disease History: Reports: None - Past Surgical History Head Surgeries/Procedures: Reports: None HEENT Surgical History: Reports: Oral Surgery Male Surgical History: Reports: None Neurological Surgical History: Reports: None Musculoskeletal Surgical History: Reports: None Oncologic Surgical History: Reports: None Dermatological Surgical History: Reports: None Social & Family History - Family History Family Medical History: No Pertinent Family History Cardiac: Reports: [place] - Caffeine Use Caffeine Use: Reports: Soda Other Caffeine Use: diet coke 2/day - Living Situation & Occupation Living situation: Reports: Single, with Family (Sister) Occupation: Unemployed ED ROS GENERAL - Review of Systems Review Of Systems: See Below Constitutional: Reports: No Symptoms HEENT: Reports: No Symptoms Respiratory: Reports: No Symptoms Cardiovascular: Reports: No Symptoms Endocrine: Reports: No Symptoms GI/Abdominal: Reports: No Symptoms : Reports: No Symptoms Musculoskeletal: Reports: Other (laceration to right forearm) ED EXAM, SKIN/RASH Exam: See Below Exam Limited By: No Limitations General Appearance: Alert, No Apparent Distress Ears: Normal External Exam Nose: Normal Inspection Throat/Mouth: Normal Inspection Head: Atraumatic, Normocephalic Neck: Normal Inspection Respiratory/Chest: No Respiratory Distress Extremities: Other (1cm laceration to the proxomial right forearm) ED SKIN PROCEDURES - Laceration/Wound Repair Right Arm Appearance: Superficial, Linear Distal NVT: Neuro & Vascular Intact, No Tendon Injury Anesthetic Type: Local Local Anesthesia - Lidocaine (Xylocaine): 1% with EPI Skin Prep: Saline Exploration/Debridement/Repair: Wound Explored, In a Bloodless Field, Explored to Base Closed with: Sutures Lac/Wound length In cm: 1 Suture Size: 4-0 # of Sutures: 2 Suture Type: Nylon, Interrupted, Simple Tetanus Status Addressed: Yes Complications: No Course - Vital Signs Last Recorded V/S: Last Vital Signs Temp 98.0 F 09/19/20 16:27 Pulse 92 09/19/20 16:27 Resp 20 09/19/20 16:27 BP 168/106 H 09/19/20 16:27 Pulse Ox 100 09/19/20 16:27 - Orders/Labs/Meds Meds: Medications Discontinued Medications Generic Name Dose Route Start Last Admin Trade Name Harshad PRN Reason Stop Dose Admin Lidocaine/Epinephrine 10 ml 09/19/20 16:29 09/19/20 16:35 Lidocaine 1% With Epinephrine 1:100,000 10 Ml Mdv INJECT 09/19/20 16:30 10 ml ONETIME ONE Administration - Re-Assessments/Exams Free Text/Narrative Re-Assessment/Exam: 09/19/20 16:57 I sutured the laceration. Departure - Departure Time of Disposition: 17:00 Disposition: Home, Self-Care 01 Condition: Good Clinical Impression: Laceration of right forearm Qualifiers: Encounter type: initial encounter Qualified Code(s): S51.811A - Laceration without foreign body of right forearm, initial encounter - Discharge Information *PRESCRIPTION DRUG MONITORING PROGRAM REVIEWED*: Not Applicable *COPY OF PRESCRIPTION DRUG MONITORING REPORT IN PATIENT VERONICA: Not Applicable Referrals: Balta Bianchi MD [Primary Care Provider] - 1 Week Forms: ED Department Discharge Additional Instructions: Clean the wound with warm soapy water 2 times per day and apply antibiotic ointment after. Have the sutures out in 1 week. Look for any signs of infection such as redness, pain, discharge or swelling. If you see any of those signs please return or see your doctor. You may need oral antibiotics. Sepsis Event Note (ED) - Evaluation Sepsis Screening Result: No Definite Risk - Focused Exam Vital Signs: Vital Signs Temp Pulse Resp BP Pulse Ox 09/19/20 16:27 98.0 F 92 20 168/106 H 100
== END 2020-09-19 17:06 | disposition home or self-care (01) ==
LOC: JD.ED 16:16
DX: S51.811A Laceration without foreign body of right forearm, initial encounter (principal); I10 Essential (primary) hypertension; K21.9 Gastro-esophageal reflux disease without esophagitis; E66.9 Obesity, unspecified; Z68.41 Body mass index [BMI] 40.0-44.9, adult; W25.XXXA Contact with sharp glass, initial encounter
CPT/HCPCS: 12001; 99282; 99282-25

== ENCOUNTER 2021-01-25 17:15 | Emergency (ER) | payer MEDICAID ==
[2021-01-25 17:58] VITALS: BP 142/86; PULSE 98
[2021-01-25] MEDS ORDERED: Lidocaine 1% 10 ML MDV INJECT ONE (18:04)
--- NOTE | 2021-01-25 19:13 | EDM.PDOC ---
ED HPI GENERAL MEDICAL PROBLEM - General Chief Complaint: Laceration Stated Complaint: FINGER LAC Time Seen by Provider: 01/25/21 18:41 Source of Information: Reports: Patient, RN Notes Reviewed History Limitations: Reports: No Limitations - History of Present Illness INITIAL COMMENTS - FREE TEXT/NARRATIVE: Patient is a 50-year-old male who presents to the ER for evaluation of a right thumb laceration. Patient states he was trying to open a can of bushes baked beans for supper tonight, he ended up lacerating his right thumb. This is on the ulnar aspect of the patient's posterior thumb, on the distal tip towards the lateral nail bed. This laceration is roughly 1 cm in length. Somewhat gaping at the lateral nail bed but it does not violate the nail at all. Denying any numbness or tingling to the area. Patient's not sure if he was up-to-date on his tetanus vaccine but records show he was updated in 2015. Patient denies any other sick-like symptoms, fever/chills, cough/shortness of breath, nausea/vomiting/diarrhea. Right Hand Pain Score (Numeric/FACES): 1 - Related Data Allergies Allergy/AdvReac Type Severity Reaction Status Date / Time No Known Allergies Allergy Verified 01/25/21 17:58 Home Meds: Home Meds DULoxetine [Cymbalta] 60 mg PO DAILY 12/27/15 [History] Nabumetone 500 mg PO BID 12/27/15 [History] Acetaminophen/HYDROcodone [[place] 325-5 MG] 1 tab PO Q6H PRN 10/24/16 [History] Budesonide/Formoterol [Symbicort 160-4.5 MCG] 2 puff INH BID 10/24/16 [History] Losartan/Hydrochlorothiazide [Losartan-HCTZ 50-12.5 MG] 1 tab PO DAILY 10/24/16 [History] Amitriptyline [Elavil] 50 mg PO BEDTIME 09/01/17 [History] Albuterol Sulfate [Albuterol Sulfate Hfa] 2 puff INH Q6HR PRN 03/05/19 [History] Omeprazole 20 mg PO BID 90 Days #90 tablet. 06/11/19 [Rx] Past Medical History HEENT History: Reports: Impaired Vision Other HEENT History: wears eyeglasses Cardiovascular History: Reports: Hypertension Other Cardiovascular History: Chest pain Respiratory History: Reports: Asthma, Sleep Apnea Other Respiratory History: Uses CPAP Gastrointestinal History: Reports: GERD Other Gastrointestinal History: Constipation Genitourinary History: Reports: None Musculoskeletal History: Reports: Fibromyalgia, Neck Pain, Chronic, Osteoporosis Other Musculoskeletal History: SI pain, lumbago Neurological History: Reports: Other (See Below) Other Neuro History: Disc displacement, lumbar strain, dizziess, cerviclagia Psychiatric History: Reports: Anxiety, Depression Endocrine/Metabolic History: Reports: Obesity/BMI 30+ Other Endocrine/Metabolic History: Vitamin B deficiency Hematologic History: Reports: None Immunologic History: Reports: None Oncologic (Cancer) History: Reports: None Dermatologic History: Reports: None - Infectious Disease History Infectious Disease History: Reports: Novel Coronavirus - Past Surgical History Head Surgeries/Procedures: Reports: None HEENT Surgical History: Reports: Oral Surgery Cardiovascular Surgical History: Reports: None Respiratory Surgical History: Reports: None GI Surgical History: Reports: Colonoscopy Male Surgical History: Reports: None Endocrine Surgical History: Reports: None Neurological Surgical History: Reports: None Musculoskeletal Surgical History: Reports: None Oncologic Surgical History: Reports: None Dermatological Surgical History: Reports: None Social & Family History - Family History Family Medical History: No Pertinent Family History Cardiac: Reports: [place], [place] - Tobacco Use Tobacco Use Status *Q: Never Tobacco User Second Hand Smoke Exposure: No - Caffeine Use Caffeine Use: Reports: Coffee, Soda Other Caffeine Use: diet coke 2/day - Recreational Drug Use Recreational Drug Use: No - Living Situation & Occupation Living situation: Reports: Single, with Family (Sister) Occupation: Unemployed ED ROS GENERAL - Review of Systems Review Of Systems: Comprehensive ROS is negative, except as noted in HPI. ED EXAM, SKIN/RASH Exam: See Below Exam Limited By: No Limitations General Appearance: Alert, WD/WN, No Apparent Distress Respiratory/Chest: No Respiratory Distress, Lungs Clear, Normal Breath Sounds, No Accessory Muscle Use, Chest Non-Tender Cardiovascular: Normal Peripheral Pulses, Regular Rate, Rhythm, No Edema Peripheral Pulses: 2+: Radial (L), Radial (R) Extremities: Normal Inspection, Normal Capillary Refill Neurological: Alert, Oriented, Normal Cognition, No Motor/Sensory Deficits Psychiatric: Normal Affect, Normal Mood Skin: Warm, Dry, Normal Color, No Rash, Wound/Incision (1 cm linear laceration to the patient's ulnar aspect of his distal right thumb, just lateral to the nailbed.) ED SKIN PROCEDURES - Laceration/Wound Repair Right Posterior Distal Digit - 1st (Thumb) Appearance: Superficial, Linear, Clean Distal NVT: Neuro & Vascular Intact Anesthetic Type: Local Local Anesthesia - Lidocaine (Xylocaine): 1% Plain Local Anesthetic Volume: 3cc Skin Prep: Chlorhexidine (Hibiciens), Saline Exploration/Debridement/Repair: Wound Explored, In a Bloodless Field, Explored to Base, No Foreign Material Found Closed with: Sutures Lac/Wound length In cm: 1 Suture Size: 4-0 # of Sutures: 3 Suture Type: Prolene, Interrupted, Simple Sterile Dressing Applied: Nurse Tetanus Status Addressed: Yes (updated in 2016) Complications: No Course - Vital Signs Last Recorded V/S: Last Vital Signs Temp 98.3 F 01/25/21 17:57 Pulse 98 01/25/21 17:57 Resp 15 01/25/21 17:57 BP 142/86 H 01/25/21 17:57 Pulse Ox 99 01/25/21 17:57 - Orders/Labs/Meds Meds: Medications Discontinued Medications Generic Name Dose Route Start Last Admin Trade Name Freq PRN Reason Stop Dose Admin Lidocaine HCl 10 ml 01/25/21 18:04 01/25/21 18:07 Lidocaine 1% 10 Ml Mdv INJECT 01/25/21 18:05 10 ml ONETIME ONE Administration Departure - Departure Time of Disposition: 19:10 Disposition: Home, Self-Care 01 Condition: Good Clinical Impression: Laceration of right thumb Qualifiers: Encounter type: initial encounter Damage to nail status: without damage Foreign body presence: without foreign body Qualified Code(s): S61.011A - Laceration without foreign body of right thumb without damage to nail, initial encounter - Discharge Information *PRESCRIPTION DRUG MONITORING PROGRAM REVIEWED*: No *COPY OF PRESCRIPTION DRUG MONITORING REPORT IN PATIENT VERONICA: No Instructions: Sutures, [place], or Adhesive Wound Closure, [id number] Referrals: Balta Bianchi MD [Primary Care Provider] - Forms: ED Department Discharge Additional Instructions: You have been evaluated in the ED for your laceration. Sutures will need to stay in for 7 to 10 days. You may return to the ED or any clinic for removal. Your tetanus booster was updated in 2016 so you do not need one at tonight's visit. Please keep this area clean and dry, you may cleanse with regular soap and water. No vigorous scrubbing. Please try to avoid submerging the affected area in water for prolonged periods of time until the sutures are removed. Watch out for signs of infection like increased redness, swelling, pain at the laceration site, or if you should develop any fevers or chills. Please return to ED if your symptoms change or worsen. Sepsis Event Note (ED) - Focused Exam Vital Signs: Vital Signs Temp Pulse Resp BP Pulse Ox 01/25/21 17:57 98.3 F 98 15 142/86 H 99
== END 2021-01-25 19:23 | disposition home or self-care (01) ==
LOC: JD.ED 17:15
DX: S61.011A Laceration without foreign body of right thumb without damage to nail, initial encounter (principal); K21.9 Gastro-esophageal reflux disease without esophagitis; E66.9 Obesity, unspecified; Z68.39 Body mass index [BMI] 39.0-39.9, adult; Z79.899 Other long term (current) drug therapy; W26.8XXA Contact with other sharp object(s), not elsewhere classified, initial encounter
CPT/HCPCS: 12001; 99282-25

== ENCOUNTER 2021-05-18 03:52 | Emergency (ER) | payer MEDICAID ==
[2021-05-18] MEDS ORDERED: Ketorolac 15 MG/ML SDV IM ONE (04:09)
[2021-05-18] MEDS ORDERED: Cyclobenzaprine 10 MG Tab PO ONE (04:09)
[2021-05-18 04:31] VITALS: BP 147/95; PULSE 85
== END 2021-05-18 04:31 | disposition home or self-care (01) ==
LOC: JD.ED 03:52
DX: M54.50 Low back pain, unspecified (principal); K21.9 Gastro-esophageal reflux disease without esophagitis; I10 Essential (primary) hypertension; J45.909 Unspecified asthma, uncomplicated; E66.9 Obesity, unspecified; Z68.39 Body mass index [BMI] 39.0-39.9, adult; Z79.899 Other long term (current) drug therapy
CPT/HCPCS: 96372; 99283; A9270-GY; J1885

== ENCOUNTER 2021-09-27 01:29 | Emergency (ER) | payer MEDICAID ==
[2021-09-27 01:42] VITALS: BP 152/79; PULSE 77
[2021-09-27] MEDS ORDERED: Ketorolac 30 MG/ML SDV IM STA (02:27)
== END 2021-09-27 02:38 | disposition home or self-care (01) ==
LOC: JD.ED 01:29
DX: G89.29 Other chronic pain (principal); M54.9 Dorsalgia, unspecified; I10 Essential (primary) hypertension; J44.9 Chronic obstructive pulmonary disease, unspecified; E66.9 Obesity, unspecified; Z28.310 Unvaccinated for COVID-19; Z79.899 Other long term (current) drug therapy; Z86.16 Personal history of COVID-19; Z68.39 Body mass index [BMI] 39.0-39.9, adult
CPT/HCPCS: 96372; 99283; J1885; 99282

== ENCOUNTER 2022-07-07 22:42 | Emergency (ER) | payer MEDICAID ==
[2022-07-07 22:56] VITALS: BP 154/93; PULSE 96
[2022-07-07] MEDS ORDERED: Orphenadrine 100 MG Tab.ER PO SCH (23:15)
== END 2022-07-07 23:33 | disposition home or self-care (01) ==
LOC: JD.ED 22:42
DX: M54.50 Low back pain, unspecified (principal); G89.29 Other chronic pain; I10 Essential (primary) hypertension; J44.9 Chronic obstructive pulmonary disease, unspecified; K21.9 Gastro-esophageal reflux disease without esophagitis; E66.9 Obesity, unspecified; Z68.39 Body mass index [BMI] 39.0-39.9, adult; Z79.899 Other long term (current) drug therapy; Z86.16 Personal history of COVID-19
CPT/HCPCS: 99283; A9270

== ENCOUNTER 2023-04-04 03:49 | Emergency (ER) | payer MEDICAID ==
[2023-04-04] MEDS ORDERED: Ketorolac 60 MG/2 ML SDV IM ONE (04:33)
[2023-04-04 05:25] VITALS: BP 158/94; PULSE 73
== END 2023-04-04 05:20 | disposition home or self-care (01) ==
LOC: JD.ED 03:49
DX: M25.561 Pain in right knee (principal); I49.49 Other premature depolarization; I10 Essential (primary) hypertension; J44.9 Chronic obstructive pulmonary disease, unspecified; K21.9 Gastro-esophageal reflux disease without esophagitis; E66.9 Obesity, unspecified; Z68.41 Body mass index [BMI] 40.0-44.9, adult; Z86.16 Personal history of COVID-19; Z79.899 Other long term (current) drug therapy
CPT/HCPCS: 73562; 93005; 93242; 96372; 99283; J1885

== ENCOUNTER 2023-07-27 12:54 | Emergency (ER) | payer MEDICAID ==
[2023-07-27 14:33] LABS: BASOPHILS ABSOLUTE AUTO 0.1 K/mm3 (0.0-0.2); BASOPHILS PERCENT AUTO 0.8 % (0.0-1.0); EOSINOPHILS ABSOLUTE AUTO 0.2 K/mm3 (0.0-0.4); EOSINOPHILS PERCENT AUTO 2.7 % (0.0-6.0); HEMATOCRIT 45.5 % (42.0-52.0); HEMOGLOBIN 14.9 gm/dl (14.0-18.0); IMMATURE GRAN ABSOLUTE AUTO 0.13 K/mm3 (0.00-0.05); IMMATURE GRAN PERCENT AUTO 1.8 % (0.0-0.4); LYMPHOCYTES ABSOLUTE AUTO 1.9 K/mm3 (1.0-4.8); LYMPHOCYTES PERCENT AUTO 26.2 % (24.0-44.0); MEAN CORPUSCULAR HEMOGLOBIN 30.7 pg (28.0-32.0); MEAN CORPUSCULAR HGB CONC 32.7 g/dl (32.0-36.0); MEAN CORPUSCULAR VOLUME 93.8 fl (83.0-99.0); MEAN PLATELET VOLUME 8.7 fl (9.4-12.4); MONOCYTES ABSOLUTE AUTO 0.7 K/mm3 (0.0-0.8); MONOCYTES PERCENT AUTO 9.2 % (0.0-8.0); NEUTROPHILS ABSOLUTE AUTO 4.2 K/mm3 (1.8-7.7); NEUTROPHILS PERCENT AUTO 59.3 % (41.0-71.0); PLATELET COUNT,PLT 362 K/mm3 (150-400); RED BLOOD CELL COUNT 4.85 M/mm3 (4.52-5.90); WHITE BLOOD CELL COUNT,WBC 7.09 K/mm3 (3.9-11.3)
[2023-07-27 14:59] LABS: A/G RATIO 0.8 (1-2); ALBUMIN 3.1 g/dl (3.4-5.0); BILIRUBIN TOTAL 0.4 mg/dL (0.2-1.0); BUN/CREATININE RATIO 8.3 (14-18); CALCIUM 8.8 mg/dL (8.5-10.1); CREATININE 1.2 mg/dL (0.7-1.3); EST CRCL DRUG DOSING (CG) 65.72 mL/min; PROTEIN TOTAL,TP 7.1 g/dl (6.4-8.2)
[2023-07-27] MEDS: predniSONE 20 MG Tab PO ONE (15:37)
[2023-07-27 20:59] VITALS: BP 133/77; PULSE 75
== END 2023-07-27 15:35 | disposition home or self-care (01) ==
LOC: JD.ED 12:54
DX: R05.2 Subacute cough (principal); I10 Essential (primary) hypertension; J44.9 Chronic obstructive pulmonary disease, unspecified; K21.9 Gastro-esophageal reflux disease without esophagitis; E66.9 Obesity, unspecified; Z86.16 Personal history of COVID-19; Z79.899 Other long term (current) drug therapy; Z68.41 Body mass index [BMI] 40.0-44.9, adult
CPT/HCPCS: 36415; 71045; 80053; 85025; 99284; J7512; 99283

== ENCOUNTER 2023-11-23 10:37 | Day surgery (SDC) | payer MEDICAID ==
[~2023-11-23 10:37] MED LIST changes: -Lactated Ringers 1,000 ML IV SCH; -Lidocaine 1%/Sod Bicarbonate in NS 8.4% 1 ML Syringe IDERM PRN; +Sodium Chloride 0.9% 10 ML Syringe FLUSH SCH
[2023-11-23] MEDS: Lactated Ringers 1,000 ML IV SCH (11:15)
[2023-11-23] MEDS ORDERED: Propofol 200 MG/20 ML SDV ONE ×2 (12:41→12:57)
[2023-11-23 14:31] VITALS: BP 113/72; PULSE 83
== END 2023-11-23 13:40 | disposition home or self-care (01) ==
LOC: JD.SDS 10:37
PROVIDERS: ATTEND Surgery
DX: K21.00 Gastro-esophageal reflux disease with esophagitis, without bleeding (principal); K22.70 Barrett's esophagus without dysplasia; F41.1 Generalized anxiety disorder; I10 Essential (primary) hypertension; J44.9 Chronic obstructive pulmonary disease, unspecified; E78.49 Other hyperlipidemia; F32.9 Major depressive disorder, single episode, unspecified; Z79.899 Other long term (current) drug therapy
CPT/HCPCS: 43239; J2704; J7120; 00731

== ENCOUNTER 2024-03-07 08:29 | Day surgery (SDC) | payer MEDICAID ==
[2024-03-07] MEDS: Lactated Ringers 1,000 ML IV SCH (08:45)
[2024-03-07] MEDS ORDERED: Lidocaine 1% 5 ML VIAL ONE (09:17)
[2024-03-07] MEDS ORDERED: Midazolam 1 MG/ML 2 ML SDV ONE (09:18)
[2024-03-07] MEDS ORDERED: fentaNYL 100 MCG/2 ML SDV ONE (09:18)
[2024-03-07] MEDS ORDERED: Propofol 200 MG/20 ML SDV ONE ×2 (09:18→09:34)
[2024-03-07 10:48] VITALS: BP 110/69; PULSE 70
== END 2024-03-07 10:45 | disposition home or self-care (01) ==
LOC: JD.SDS 08:29
PROVIDERS: ATTEND Surgery
DX: Z12.11 Encounter for screening for malignant neoplasm of colon (principal); D12.3 Benign neoplasm of transverse colon; K63.5 Polyp of colon; K57.30 Diverticulosis of large intestine without perforation or abscess without bleeding; I10 Essential (primary) hypertension; E66.9 Obesity, unspecified; Z68.41 Body mass index [BMI] 40.0-44.9, adult; Z79.899 Other long term (current) drug therapy
CPT/HCPCS: 45380; J2250; J2704; J3010; J7120; 00811; J3490

== ENCOUNTER 2024-08-19 15:35 | Emergency (ER) | payer MEDICAID ==
[2024-08-19] MEDS ORDERED: Sodium Chloride 0.9% 10 ML Syringe FLUSH PRN (15:52)
[2024-08-19 16:25] LABS: BASOPHILS PERCENT AUTO 0.5 % (0.0-1.0); EOSINOPHILS ABSOLUTE AUTO 0.1 K/mm3 (0.0-0.4); EOSINOPHILS PERCENT AUTO 2.5 % (0.0-6.0); HEMATOCRIT 44.6 % (42.0-52.0); HEMOGLOBIN 14.9 gm/dl (14.0-18.0); IMMATURE GRAN ABSOLUTE AUTO 0.02 K/mm3 (0.00-0.05); IMMATURE GRAN PERCENT AUTO 0.4 % (0.0-0.4); LYMPHOCYTES ABSOLUTE AUTO 1.4 K/mm3 (1.0-4.8); LYMPHOCYTES PERCENT AUTO 24.4 % (24.0-44.0); MEAN CORPUSCULAR HGB CONC 33.4 g/dl (32.0-36.0); MEAN CORPUSCULAR VOLUME 92.7 fl (83.0-99.0); MEAN PLATELET VOLUME 9.5 fl (9.4-12.4); MONOCYTES ABSOLUTE AUTO 0.5 K/mm3 (0.0-0.8); MONOCYTES PERCENT AUTO 9.5 % (0.0-8.0); NEUTROPHILS ABSOLUTE AUTO 3.6 K/mm3 (1.8-7.7); NEUTROPHILS PERCENT AUTO 62.7 % (41.0-71.0); RED BLOOD CELL COUNT 4.81 M/mm3 (4.52-5.90)
[2024-08-19] MEDS: Ondansetron 4 MG/2 ML SDV IVPUSH ONE (16:30)
[2024-08-19] MEDS: Sodium Chloride 0.9% 1,000 ML IV SCH (16:31)
[2024-08-19 16:33] LABS: PLATELET COUNT,PLT 223 K/mm3 (150-400)
[2024-08-19 16:59] LABS: ALBUMIN 3.5 g/dl (3.4-5.0); ANION GAP 12.6 (5-15); BILIRUBIN TOTAL 0.5 mg/dL (0.2-1.0); C-REACTIVE PROTEIN 0.61 mg/dL (<0.30); CALCIUM 8.7 mg/dL (8.5-10.1); EST CRCL DRUG DOSING (CG) 77.98 mL/min; MAGNESIUM 1.9 mg/dL (1.8-2.4); POTASSIUM,K 3.6 mEq/L (3.5-5.1); PROTEIN TOTAL,TP 7.1 g/dl (6.4-8.2)
[2024-08-19] MEDS: Orphenadrine 100 MG Tab.ER PO STA (17:15)
[2024-08-19 18:57] VITALS: BP 168/76; PULSE 83
== END 2024-08-19 18:35 | disposition home or self-care (01) ==
LOC: JD.ED 15:35
DX: M54.50 Low back pain, unspecified (principal); G89.29 Other chronic pain; R11.2 Nausea with vomiting, unspecified; I10 Essential (primary) hypertension; J44.89 Other specified chronic obstructive pulmonary disease; K21.9 Gastro-esophageal reflux disease without esophagitis; Z86.16 Personal history of COVID-19; Z79.899 Other long term (current) drug therapy
CPT/HCPCS: 36415; 80053; 83690; 83735; 85025; 86140; 93005; 96361; 96374; 99284; A9270; J2405; J7030; 93010; 99283

== ENCOUNTER 2024-10-31 13:54 | Emergency (ER) | payer MEDICAID ==
[2024-10-31 14:15] VITALS: BP 133/93; PULSE 114
[2024-10-31] MEDS: Diphtheria,Pertussis(Acell),Tetanus Vaccine 0.5 ML Syringe IM ONE (14:50)
== END 2024-10-31 15:50 | disposition home or self-care (01) ==
LOC: JD.ED 13:54
DX: S61.211A Laceration without foreign body of left index finger without damage to nail, initial encounter (principal); I10 Essential (primary) hypertension; J45.909 Unspecified asthma, uncomplicated; J44.89 Other specified chronic obstructive pulmonary disease; K21.9 Gastro-esophageal reflux disease without esophagitis; Z86.16 Personal history of COVID-19; Z23 Encounter for immunization; Z79.899 Other long term (current) drug therapy; W22.8XXA Striking against or struck by other objects, initial encounter; Y93.89 Activity, other specified
CPT/HCPCS: 12001; 90471; 90715; 99282; J2003; 99283